=== PATIENT | male | born 1935 | race Caucasian/White ===

== ENCOUNTER 2018-10-13 16:26 | Inpatient (IN) ==
--- NOTE | 2018-10-13 16:42 | Emergency Department Note ---
Disposition Clinical Impression: Defibrillator discharge, Acute kidney injury, Ventricular tachycardia Disposition: Admitted As Inpatient Condition: Fair Time of Disposition: 19:05 General Adult HPI - General Chief complaint: ED Arrhythmia/Palpitations Stated complaint: Defibrillator firing Time Seen by Provider: 10/13/18 16:35 Source: patient, EMS Limitations: no limitations Nursing Notes Reviewed: Yes Vital Signs Reviewed: Yes - History of Present Illness HPI Narrative: 83-year-old male with history of atrial fibrillation, dementia who presents the emergency department with complaints of his defibrillator firing. He states this has fired multiple times over the last couple of days, most recently today. He states these have been "small shocks ". He denies any current chest pain, shortness of breath, nausea, vomiting or diarrhea. He denies any back pain. Pain Scale: 0 - Related Data Home Medications Medication Instructions Recorded Confirmed Atorvastatin Calcium [Lipitor] 20 mg PO DAILY 03/14/16 10/13/18 Clopidogrel [Plavix] 75 mg PO DAILY 03/14/16 10/13/18 Furosemide [Lasix] 20 mg PO DAILY 03/14/16 10/13/18 HYDROcodone/Acet 5/325 mg [Moose 1 tab PO TID PRN 03/14/16 10/13/18 5-325 mg] Warfarin [Coumadin] 2 mg PO DAILY 03/14/16 10/13/18 Warfarin [Coumadin] 1.5 mg PO DAILY 03/15/16 10/13/18 Acetaminophen [Tylenol] 325 mg PO Q4HR 05/19/18 10/13/18 Albuterol Sulfate [Ventolin Hfa] 18 gm IH Q4HR 05/19/18 10/13/18 Cetirizine HCl 5 mg PO DAILY 05/19/18 10/13/18 Donepezil [Aricept] 10 mg PO HS 05/19/18 10/13/18 Ipratropium/Albuterol Neb [Duoneb] 3 ml IH Q6HR PRN 05/19/18 10/13/18 Loperamide [Imodium] 2 mg PO Q4HR PRN 05/19/18 10/13/18 Magnesium Hydroxide [Milk of 30 ml PO DAILY PRN 05/19/18 10/13/18 Magnesia] Metoprolol XL (24 HR) Succ [Toprol 12.5 mg PO DAILY 05/19/18 10/13/18 Xl] Ondansetron ODT [Zofran ODT] 4 mg SL Q8HR PRN 05/19/18 10/13/18 Oxybutynin Chloride [Ditropan Xl] 5 mg PO DAILY 05/19/18 10/13/18 Pantoprazole Sodium [Protonix] 20 mg PO DAILY 05/19/18 10/13/18 Polyethylene Glycol 3350 [Clearlax] 17 gm PO DAILY 05/19/18 10/13/18 Sennosides [Senna] 8.6 mg PO BID 05/19/18 10/13/18 Sucralfate [Carafate] 1 gm PO QIDAC 05/19/18 10/13/18 Lisinopril [Zestril] 5 mg PO DAILY 10/13/18 10/13/18 Ranitidine HCl [Heartburn Relief] 75 mg PO BID 10/13/18 10/13/18 RisperiDONE [Risperdal] 0.25 mg PO QPM 10/13/18 10/13/18 Sertraline [Zoloft] 25 mg PO DAILY 10/13/18 10/13/18 Previous Rx's Medication Instructions Recorded Quetiapine Fumarate [Seroquel] 25 mg PO Q12H 14 Days tablet 03/20/16 Allergies Allergy/AdvReac Type Severity Reaction Status Date / Time No Known Allergies Allergy Verified 03/14/16 15:30 Review of Systems: ROS per history of present illness, all other systems reviewed and negative or normal. All systems ED: reviewed and negative except as stated. Review of Systems: As Per HPI Past Medical History - Past Medical History Medical history: Reports: arthritis, atrial fibrillation, dementia, GERD, hypert ension, myocardial infarction Surgical history: Reports: carotid endarterectomy, colectomy, herniorrhaphy Psychiatric history: Reports: no psych history - Social History Smoking Status: Current every day smoker Smokeless Tobacco Status: Yes Alcohol use: Reports: none Drug use: Reports: none Physical Exam General: Conversant. No apparent distress. Follow commands. Appears stated age. Neck: No JVD. Trachea midline. Neck supple. Eyes: PERRL. No scleral icterus. HENT: Normocephalic and atraumatic. Moist mucus membranes. Cardiovascular: Regular rate and rhythm. Normal S1 and S2. No murmurs appreciated. Normal capillary refill. Extremities well perfused with 2+ distal pulses bilaterally. No edema. Pulmonary: Normal and equal breath sounds bilaterally, anteriorly and posteriorly. No wheezes, rales, or rhonchi. Not in respiratory distress. Speaks in full sentences. Abdomen: Soft, nondistended, and tontender. No bruits or masses. No guarding. Neuro: Alert and oriented x2, knows place and person but not time. No slurred speech. No focal deficits noted. Skin: No rashes noted on visualized skin. Musculoskeletal: No bony abnormalities visualized. Moves all extremities. Psych: Normal mood. Pleasant. Makes appropriate eye contact. - General Limitations: no limitations General appearance: alert, in no apparent distress Course - Reevaluation(s) Reevaluation #1: [employer] report reviewed which shows 2 shocks delivered for V. tach/V. fib. Discussed case with Dr. Latif who recommends giving 25mg Metoprolol today then admission to the hospitalist and they will consult to see the patient tomorrow. Time: 18:53 Reevaluation #2: Updated family on plan of care. They agree to plan for admission. Time: 19:15 Reevaluation #3: [employer] states there were shocks provided due to AFib. Then there were shocks delivered for HR 222. He notes the fluid index is up. Time: 19:40 Vital Signs Temperature 98.4 F 10/13/18 16:28 Pulse Rate 76 10/13/18 16:28 Respiratory Rate 16 10/13/18 16:28 Blood Pressure 142/82 10/13/18 16:28 O2 Sat by Pulse Oximetry 97 10/13/18 16:28 Temperature 98.4 F 10/13/18 16:28 Pulse Rate 68 10/13/18 19:35 Respiratory Rate 16 10/13/18 19:35 Blood Pressure 134/61 10/13/18 19:35 O2 Sat by Pulse Oximetry 98 10/13/18 19:35 Oxygen Delivery Oxygen Delivery Room Air Medical Decision Making - [facility] Narrative Medical decision making narrative: 83-year-old male with history of CHF with AICD who presents the emergency department after defibrillator firing. The patient has no point at this time. He is alert and oriented 2 which appears approximately the patient's baseline. Patient has baseline anemia on laboratory evaluation. INR therapeutic at 2.3. Patient's creatinine 1.5 to which appears worse than previous but unsure if this is new acute kidney injury given his most recent creatinine was acting 2015. Otherwise the patient's magnesium is stable. Troponin 0.03. Potassium 3.9. Patient's chest x-ray shows no acute focal consolidation. We did interrogate the defibrillator and this showed runs of V. tach/V. fib as well as atrial tach/atrial flutter fib. He was seen in his insurance associate office today with interrogation but these episodes appear new. I discussed with clinical consultant security sales consultant, Dr. Latif who recommends hitting 25 mg metoprolol and admitting to hospitalist. They will consult to see the patient in the morning. Discussed case with on-call hospitalist Dr. Dejesus who agrees with plan for admission and accepts the patient to the inpatient service. Patient agrees with and understands course of treatment plan including plan for admission. All questions answered. - Medical Records Medical records reviewed: Yes I reviewed the patient's medical records. - Lab Data Lab results reviewed: Yes I reviewed the patient's lab results. Result diagrams: 10/13/18 16:49 10/13/18 16:49 Lab Results 10/13/18 10/13/18 10/13/18 Range/Units 16:49 16:49 16:49 WBC 6.9 (4.3-11.1) K/mcL RBC 3.34 L (4.19-5.50) M/mcL Hgb 9.5 L (12.9-16.9) g/dL Hct 29.5 L (37.5-50.1) % MCV 88.3 (83.0-100.0) fL MCH 28.4 (28.0-33.3) pg MCHC 32.2 (31.6-35.5) g/dL RDW 15.1 H (11.5-14.5) % Plt Count 153 (140-400) K/mcL MPV 9.8 (9.4-12.4) fL Immature Gran % 0.3 (0-4) % Seg Neutrophils % 58.5 % Lymphocytes % 29.6 % Monocytes % 11.2 % Eosinophils % 0.0 % Basophils % 0.4 % Neutrophils # 4.0 (1.6-8.9) K/mcL Lymphocytes # 2.0 (0.6-4.6) K/mcL Monocytes # 0.8 (0.0-1.3) K/mcL Eosinophils # 0.0 (0.0-0.6) K/mcL Basophils # 0.0 (0.0-0.2) K/mcL PT 26.5 H (9.4-12.1) Seconds INR 2.3 Sodium 140 (136-145) mEq/L Potassium 3.9 (3.5-5.1) mEq/L Chloride 104 (98-107) mEq/L Carbon Dioxide 28 (23-29) mEq/L BUN 22 (8-23) mg/dL Creatinine 1.52 H (0.70-1.30) mg/dL Est GFR ( Amer) 53 L (> 60) Est GFR (Non-Af Amer) 44 L (> 60) BUN/Creatinine Ratio 14 (6-26) Glucose 92 (70-105) mg/dL Calculated Osmolality 293 (280-300) Calcium 9.1 (8.6-10.3) mg/dL Magnesium 2.0 (1.6-2.6) mg/dL Troponin I 0.03 (< 0.04) ng/mL - Radiology Data Radiology results reviewed: Yes I reviewed the patient's radiology results. Chest X-Ray 10/13/18 16:36 IMPRESSION: No acute process. D/ / Tremayne Orozco MD / Tremayne Orozco MD Interpreting Provider: Tremayne Orozco MD - EKG Data EKG #1 EKG attestation: Yes I reviewed and interpreted this EKG. EKG results narrative: Atrial paced rhythm rate of 74. There are no acute ST or T-wave abnormalities. When compared with prior from 05/19/18 there are no significant changes. Attestation Statement - Attestation Attestation: Dr. Henry note: Patient seen in conjunction with resident Dr. Jonel Washington; please see her charting for complete documentation. Spent [id number] time with the patient and agree with the patient's treatment and disposition. No chest pain or shortness of breath at the time of admission. Defibrillator has fired 3 times in the last 24 hours and upon device interrogation different lengths of ventricular fibrillation and ventricular tachycardia were detected. Labs reviewed and stable. Admitted and stabilized improved condition.
[2018-10-13 16:57] LABS: Basophils % 0.4 %; Hematocrit 29.5 % (37.5-50.1); Hemoglobin 9.5 g/dL (12.9-16.9); Immature Granulocytes % 0.3 % (0-4); Lymphocytes % 29.6 %; Mean Corpuscular HGB Conc 32.2 g/dL (31.6-35.5); Mean Corpuscular Hemoglobin 28.4 pg (28.0-33.3); Mean Corpuscular Volume 88.3 fL (83.0-100.0); Mean Platelet Volume 9.8 fL (9.4-12.4); Monocytes # 0.8 K/mcL (0.0-1.3); Monocytes % 11.2 %; Platelet Count 153 K/mcL (140-400); Red Blood Count 3.34 M/mcL (4.19-5.50); Red Cell Distribution Width 15.1 % (11.5-14.5); Segmented Neutrophils % 58.5 %; White Blood Count 6.9 K/mcL (4.3-11.1)
[2018-10-13 17:04] LABS: INR 2.3; Prothrombin Time 26.5 Seconds (9.4-12.1)
[2018-10-13 17:17] LABS: Calcium 9.1 mg/dL (8.6-10.3); Potassium 3.9 mEq/L (3.5-5.1); Troponin I 0.03 ng/mL (< 0.04)
[2018-10-13] MEDS ORDERED: Nicotine 21 MG PATCH.TD24 TD STA (19:43)
[2018-10-13] MEDS ORDERED: Metoprolol XL (24 HR) Succ 25 MG TAB.ER.24H PO STA (20:17)
[2018-10-14] MEDS ORDERED: Naloxone 0.4 MG/ML INJ IVP PRN (04:48)
--- NOTE | 2018-10-14 04:53 | Internal Med History&Physical ---
Date of Encounter: 10/14/18 Time of Encounter: 04:30 Internal Medicine - H&P: HPI Chief complaint: Defibrillator firing Admitted From: Emergency Dept History of present illness: Mr. Vizcarra is a 83 year old male Patient presented to the emergency room from a [facility] after experiencing several shocks from his defibrillator. He has a pacemaker secondary to atrial fibrillation, and at the end of April of this year had it replaced by Dr. Ye watson. He had no issues prior to this. He was brought to the emergency room for further evaluation. Emergency room patient's initial vital signs were within normal limits CBC: White count 6.9, hemoglobin 9.5, platelets 153 BMP: Notable for creatinine of 1.5 to. Initial troponin 0.03 Chest x-ray no acute process EKG: Paced rhythm, rate of 74, no ischemic changes In the emergency room [employer] was called and they noted that the pacemaker did fire twice for a V. tach/V. fib episode. Emergency department contacted director of operations home health cardiology Dr. Latif who recommended giving the patient 25 mg of metoprolol and admitting the patient to the hospital. The pacemaker was interrogated again in the ER, and [employer] indicated that the pacemaker had fired for atrial fibrillation after the heart rate reached 222bpm. Upon my evaluation, patient is resting comfortably in the hospital bed in no acute distress. He is oriented to self, place but not time. He denies chest pain, abdominal pain, nausea, vomiting, diarrhea and constipation. He is a pack-a-day smoker, and is a full code. Past Med Surg Social Fam HX - Past Medical History Medical history: arthritis, atrial fibrillation, dementia, GERD, hypertension, myocardial infarction Additional medical history: cerebral infarction. gastritis Psychiatric history: no psych history - Past Surgical History Surgical History: carotid endarterectomy, colectomy, herniorrhaphy, pacemaker/AICD - Social History Smoking Status: Current every day smoker Packs per day: 1 Smokeless Tobacco Status: Yes Alcohol use: none Drug use: none - Family History Mother Adopted: No Family Member Ethnicity: Non- Living Status: Hx Family Cardiac Disorders: Yes Internal Medicine - H&P: Meds Atorvastatin Calcium [Lipitor] 20 mg PO DAILY 03/14/16 [History] Clopidogrel [Plavix] 75 mg PO DAILY 03/14/16 [History] Furosemide [Lasix] 20 mg PO DAILY 03/14/16 [History] HYDROcodone/Acet 5/325 mg [[place] Burn 5-325 mg] 1 tab PO TID PRN 03/14/16 [History] Warfarin [Coumadin] 2 mg PO DAILY 03/14/16 [History] Warfarin [Coumadin] 1.5 mg PO DAILY 03/15/16 [History] Quetiapine Fumarate [Seroquel] 25 mg PO Q12H 14 Days tablet 03/20/16 [Rx] Acetaminophen [Tylenol] 325 mg PO Q4HR 05/19/18 [History] Albuterol Sulfate [Ventolin Hfa] 18 gm IH Q4HR 05/19/18 [History] Cetirizine HCl 5 mg PO DAILY 05/19/18 [History] Donepezil [Aricept] 10 mg PO HS 05/19/18 [History] Ipratropium/Albuterol Neb [Duoneb] 3 ml IH Q6HR PRN 05/19/18 [History] Loperamide [Imodium] 2 mg PO Q4HR PRN 05/19/18 [History] Magnesium Hydroxide [Milk of Magnesia] 30 ml PO DAILY PRN 05/19/18 [History] Metoprolol XL (24 HR) Succ [Toprol Xl] 12.5 mg PO DAILY 05/19/18 [History] Ondansetron ODT [Zofran ODT] 4 mg SL Q8HR PRN 05/19/18 [History] Oxybutynin Chloride [Ditropan Xl] 5 mg PO DAILY 05/19/18 [History] Pantoprazole Sodium [Protonix] 20 mg PO DAILY 05/19/18 [History] Polyethylene Glycol 3350 [Clearlax] 17 gm PO DAILY 05/19/18 [History] Sennosides [Senna] 8.6 mg PO BID 05/19/18 [History] Sucralfate [Carafate] 1 gm PO QIDAC 05/19/18 [History] Lisinopril [Zestril] 5 mg PO DAILY 10/13/18 [History] Ranitidine HCl [Heartburn Relief] 75 mg PO BID 10/13/18 [History] RisperiDONE [Risperdal] 0.25 mg PO QPM 10/13/18 [History] Sertraline [Zoloft] 25 mg PO DAILY 10/13/18 [History] Allergy/AdvReac Type Severity Reaction Status Date / Time No Known Allergies Allergy Verified 03/14/16 15:30 All Systems PM: A 10-system review of systems was performed and is negative for pertinent findings except as documented above in the HPI. - Constitutional Vitals: Temp Pulse Resp BP Pulse Ox 98.0 F 60 16 134/76 97 10/13/18 23:40 10/13/18 23:40 10/13/18 23:40 10/13/18 23:40 10/13/18 23:40 General appearance: Present: cooperative, A&O X 2, pleasant, no acute distress, answers questions appropriately Exam: - - Head Head exam: Present: normal inspection - Eye Eye exam: Present: EOMI, normal appearance - Respiratory Respiratory exam: Present: CTAB. Absent: rales, respiratory distress, rhonchi, wheezes - Cardiovascular Cardiovascular exam: Present: RRR. Absent: diastolic murmur, systolic murmur - GI/Abdominal GI/Abdominal exam: Present: normal bowel sounds, soft, tenderness - Extremities Exam Extremities exam: Present: warm, radial pulses palpable and symmetrical. Absent: calf tenderness, pedal edema, tenderness - Neurological Exam Neurological exam: Present: no focal deficits, strengths equal and symetr throughout. Absent: motor sensory deficit, facial droop, speech deficit - Skin Skin exam: Present: dry, normal color, warm Internal Med - H&P Results - Labs CBC & Chem 7: 10/13/18 16:49 10/13/18 16:49 Labs: Short CBC 10/13/18 Range/Units 16:49 WBC 6.9 (4.3-11.1) K/mcL Hgb 9.5 L (12.9-16.9) g/dL Hct 29.5 L (37.5-50.1) % Plt Count 153 (140-400) K/mcL Neutrophils # 4.0 (1.6-8.9) K/mcL BMP 10/13/18 16:49 Sodium 140 Potassium 3.9 Chloride 104 Carbon Dioxide 28 BUN 22 Creatinine 1.52 H Glucose 92 Calcium 9.1 Cardiac Enzymes 10/13/18 Range/Units 16:49 Troponin I 0.03 (< 0.04) ng/mL - Impressions ITS Impressions Chest X-Ray 10/13/18 16:36 IMPRESSION: No acute process. D/ / Tremayne Orozco MD / Tremayne Orozco MD Interpreting Provider: Tremayne Orozco MD - Assessment and Plan (1) Defibrillator discharge Current Visit: Yes Status: Acute Assessment and plan: Patient has had a few firings of his defibrillator after reviewing its activity. Cardiology was contacted from the ER and will see the patient in the morning. Patient was given 25 mg of metoprolol. Follow-up cardiology recommendations Cardiac monitoring (2) CELE (acute kidney injury) Current Visit: Yes Status: Acute Assessment and plan: Patient's creatinine was 1.52 in the emergency room. Last known recorded creatinine from 3 years ago was 1.22. No fluids given in the emergency room secondary to history of systolic CHF. Echocardiogram from 6 months ago shows an EF of 25-30%. Repeat labs in the morning Continue to monitor Avoid nephrotoxic medications Renally dose meds (3) Tobacco abuse Current Visit: No Status: Chronic Assessment and plan: Nicotine patch (4) DVT prophylaxis Current Visit: Yes Status: Acute Assessment and plan: Continue home warfarin, pharmacy to dose - Time Spent With Patient Total time spent is greater than 50% in coordination of care (as documented) at patient's floor/unit and/or counseling patient: Greater than 35 minutes
[2018-10-14 06:01] LABS: Hematocrit 29.2 % (37.5-50.1); Hemoglobin 9.6 g/dL (12.9-16.9); Mean Corpuscular HGB Conc 32.9 g/dL (31.6-35.5); Mean Corpuscular Volume 88.2 fL (83.0-100.0); Mean Platelet Volume 10.3 fL (9.4-12.4); Platelet Count 153 K/mcL (140-400); Red Blood Count 3.31 M/mcL (4.19-5.50); Red Cell Distribution Width 14.9 % (11.5-14.5)
[2018-10-14 06:24] LABS: INR 2.1; Prothrombin Time 23.8 Seconds (9.4-12.1)
[2018-10-14 06:26] LABS: Calcium 9.4 mg/dL (8.6-10.3); Potassium 4.4 mEq/L (3.5-5.1)
--- NOTE | 2018-10-14 07:52 | Event Note ---
Date of Encounter: 10/14/18 Time of Encounter: 09:50 Mr Vizcarra is a 83 yo male with pmhx Afib s/p PPM and AICD, HFrEF 25-30% following with Dr Zhang outpt, Dementia, HTN, CVA who presented with defibrillator firing at [facility]. He was initially placed as observation, however with another firing today and EKG findings of age indeterminant anterior infarct, he requires continued inpt monitoring for medication adjustments, continued tele with cardiology consultation. He has been placed as inpatient for this continued care. awake, family at bedside. with his dementia he is acutely aware of when aicd fires but now today cannot recall. denies cp, pressure, sob, plapitations. no dizziness, n/v/sweats. Family is t bedside. Cardiology [employer] to bedside as well. gen- alert, awake,appears stated age eyes- pupils equal round cv- reg rate and rhythm, normal s1,s2, no murmurs appreciated, no le edema, no jvd lungs- ctabl, no wheezing, rhonchi or crackles abd- soft, non tender, non distended, neuro- AAOxperson, place, not date, CN grossly intact Defibrillator firing 2/2 Afib with RVR -d/w cards and interrogation shows Afib -uptitrate BB and monitor -monitor lytes, cont tele, check tsh in am, no evidence of infection as precipitating factor of afib rvr -ekg with normal qtc and age indeterminant anterior infarct likely, defer ischemic work up recs to cards this admit- cont asa + plavix Afib on Warfarin- paroxysmal, currently NSR -INR at goal, pharm to dose AC, 50 mg Toprol XL started today CELE, improving - holding iVF due to HFrEF hx, avoid nephrotoxins, cont to hold acei and lasix -check ua Dementia- cont home meds regimen: donepizil, seroquel, risperdal, zoloft, will monitor QTc, next check ekg in am HFrEF- stable, not in exacerbation- meds as above vte ppx- warfarin dispo- is a bedhold at SNF when medically stable for dc
--- NOTE | 2018-10-14 09:50 | Cardiology Consult Note ---
<Radha Moore Nessa - Last Filed: 10/14/18 11:05> Date of Encounter: 10/14/18 Time of Encounter: 09:30 Assessment and Plan (1) Defibrillator discharge Status: Acute AICD shock on 09/29, 10/12, and 10/13. Per device report (and remote device checks reviewed by Dr. Zhang); AICD shocks for Afib with RVR. Electrolytes normal, K 4.0 and Mg 2.0. BP stable, will optimize BB dose--increase to Toprol XL 50 mg daily. (2) Atrial fibrillation Status: Chronic Long-standing hx of atrial fibrillation on coumadin. INR monitored by SNF. NSR upon exam, HR 60's. . Appears ICD shocks for Afib with RVR; will increase home toprol XL to 50 mg daily; hypertension noted on exam. Continue to increase BB as BP will tolerate. Qualifiers: Atrial fibrillation type: paroxysmal Qualified Code(s): I48.0 - Paroxysmal atrial fibrillation (3) Ischemic cardiomyopathy Status: Acute Longstanding hx of ICMP s/p dual chamber ICD. Recent gen change 04/2018. Family reports initial AICD >20 years ago. Clinically euvolemic upon exam. Continue current medical therapy; will optimize BB dose. Resume ACEi if BP tolerates increase in BB. Continue statin, plavix, and coumadin. No asa to avoid triple therapy. Discussion w patient/family: The assessment and plan as outlined above was discussed with the patient and/or family members who expressed understanding and agreement. All questions were answered. Thank you for involving us in the care of your patient. Please call with any questions. The patient will be discussed and reviewed with Dr. Weinberg; changes to be made accordingly. History of Present Illness Consult date: 10/14/18 Requesting physician: Cindy Washington Consult reason: AICD shock Chief complaint: AICD shock History of present illness: Mr. Vizcarra is a 83 year old male with PMHx significant of HTN, CAD, AFib (coumadin), ICMP s/p AICD, and dementia who presented to the ED from SNF due to recurrent ICD shocks. Initial shock on 09/29, then 10/12, and again yesterday which prompted ED evaluation. Patient is pleasantly confused upon exam and has no complaints--no chest pain/discomfort, edema, or dizziness. He does not recall AICD shocks. Remote device checks reviewed, appears to have ICD shocks for afib with RVR. Upon arrival to ED, he is noted to be in NSR, 60 BPM. Troponin negative x2. No acute electrolyte abnormality. Past Med Surg Social Fam HX - Past Medical History Attestation: Yes The following information was validated with the patient. Source: old records reviewed, obtained from family Medical history: arthritis, atrial fibrillation, cardiomyopathy, coronary artery disease, dementia, GERD, hypertension, myocardial infarction Additional medical history: cerebral infarction. gastritis Psychiatric history: no psych history - Past Surgical History Surgical History: carotid endarterectomy, colectomy, herniorrhaphy, pacemaker/AICD - Social History Smoking Status: Current every day smoker Packs per day: 1 Smokeless Tobacco Status: Yes Alcohol use: none Drug use: none - Family History Mother Adopted: No Family Member Ethnicity: Non- Living Status: Hx Family Cardiac Disorders: Yes Father History Unknown: Yes Medications and Allergies Atorvastatin Calcium [Lipitor] 20 mg PO DAILY 03/14/16 [History] Clopidogrel [Plavix] 75 mg PO DAILY 03/14/16 [History] Furosemide [Lasix] 20 mg PO Q48H 03/14/16 [History] HYDROcodone/Acet 5/325 mg [[place] 5-325 mg] 1 tab PO TID 03/14/16 [History] Warfarin [Coumadin] 2 mg PO [id number] 03/14/16 [History] Quetiapine Fumarate [Seroquel] 25 mg PO Q12H 14 Days tablet 03/20/16 [Rx] Albuterol Sulfate [Ventolin Hfa] 1 - 2 puff IH Q4HR PRN 05/19/18 [History] Cetirizine HCl 5 mg PO DAILY 05/19/18 [History] Donepezil [Aricept] 10 mg PO HS 05/19/18 [History] Loperamide [Imodium] 4 mg PO AD PRN 05/19/18 [History] Oxybutynin Chloride [Ditropan Xl] 5 mg PO DAILY 05/19/18 [History] Pantoprazole Sodium [Protonix] 20 mg PO BID 05/19/18 [History] Sennosides [Senna] 8.6 mg PO BID 05/19/18 [History] Sucralfate [Carafate] 1 gm PO ACHS 05/19/18 [History] Lisinopril [Zestril] 5 mg PO DAILY 10/13/18 [History] Ranitidine HCl [Heartburn Relief] 75 mg PO BID 10/13/18 [History] RisperiDONE [Risperdal] 0.25 mg PO HS 10/13/18 [History] Sertraline [Zoloft] 25 mg PO DAILY 10/13/18 [History] Acetaminophen [Tylenol] 650 mg PO Q4H PRN 10/14/18 [History] Chlorpheniramine/Dextromethorp [Coricidin Hbp Cough & Cold Tab] 2 tab PO Q4H PRN MDD 4 TABS/24HR 10/14/18 [History] Ipratropium/Albuterol Sulfate [Iprat-Albut 0.5-3(2.5) mg/3 ml] 3 ml IH Q4H PRN 10/14/18 [History] Magnesium Hydroxide [Milk of Magnesia] 2,400 mg PO DAILY PRN 10/14/18 [History] Ondansetron HCl 4 mg PO Q8H PRN 10/14/18 [History] Polyethylene Glycol 3350 [MiraLax bowel prep] 17 gm PO DAILY 10/14/18 [History] Warfarin [Coumadin] 1.5 mg PO MOTH 10/14/18 [History] Amiodarone [Cordarone] 200 mg PO DAILY tablet 10/15/18 [Rx] Metoprolol XL (24 HR) Succ [Toprol Xl] 50 mg PO DAILY tab.er.24h 10/15/18 [Rx] Allergy/AdvReac Type Severity Reaction Status Date / Time No Known Allergies Allergy Verified 10/14/18 10:17 ROS unobtainable: due to mental status (dementia) All Systems Review: The remainder of the systems were reviewed and are negative Physical Examination Vital Signs, Last 4 Hours Temp Pulse Resp BP Pulse Ox 10/14/18 07:06 98.2 F 68 16 140/69 96 10/14/18 05:54 98.4 F 69 14 140/67 98 General: Conversant, No Apparent Distress HEENT: Atraumatic, Normocephaly Cardiac: Reg Rate and Rhythm, Normal S1 and S2 Lungs: Normal Breath Sounds Neuro: Alert and responsive (to self) Abdomen: Soft Skin: No rashes noted on visualized skin Musculoskeletal: No Chest Wall Tenderness Extremities: No Edema, Normal Pulses Results 10/14/18 05:39 10/14/18 05:39 Lab Results 10/13/18 10/13/18 10/13/18 16:49 16:49 16:49 WBC 6.9 Hgb 9.5 L Hct 29.5 L Plt Count 153 INR 2.3 Sodium 140 Potassium 3.9 Chloride 104 Carbon Dioxide 28 BUN 22 Creatinine 1.52 H Glucose 92 Calcium 9.1 Magnesium 2.0 Troponin I 0.03 10/14/18 10/14/18 10/14/18 05:39 05:39 05:39 WBC 7.0 Hgb 9.6 L Hct 29.2 L Plt Count 153 INR 2.1 Sodium 141 Potassium 4.4 Chloride 105 Carbon Dioxide 24 BUN 22 Creatinine 1.37 H Glucose 99 Calcium 9.4 Magnesium Troponin I 10/14/18 05:39 WBC Hgb Hct Plt Count INR Sodium Potassium Chloride Carbon Dioxide BUN Creatinine Glucose Calcium Magnesium Troponin I 0.03 Active Medications Hydrocodone Bitart/Acetaminophen ([place] 5-325 Mg) 1 tab PO TID PRN PRN Reason: Pain Stop: 04/14/19 23:18 Atorvastatin Calcium (Lipitor) 20 mg PO HS [facility] Stop: 04/15/19 21:01 Clopidogrel Bisulfate (Plavix) 75 mg PO DAILY [facility] Stop: 04/15/19 09:01 Donepezil HCl (Aricept) 10 mg PO HS [facility] Stop: 04/15/19 21:01 Famotidine (Pepcid) 10 mg PO BID [facility] Stop: 04/15/19 09:01 Metoprolol Succinate (Toprol Xl) 50 mg PO DAILY [facility] Stop: 04/15/19 09:16 Naloxone HCl (Narcan) 0.4 mg IVP Q2MPRN PRN PRN Reason: SEE COMMENTS Stop: 04/15/19 04:49 Omeprazole (Prilosec) 20 mg PO DAILY@0730 [facility] Stop: 04/15/19 09:01 Oxybutynin Chloride (Ditropan) 5 mg PO BID [facility] Stop: 04/15/19 09:01 Polyethylene Glycol (Miralax) 17 gm PO DAILY [facility] Stop: 04/15/19 09:01 Quetiapine Fumarate (Seroquel) 25 mg PO Q12H [facility]; Protocol Stop: 04/15/19 21:01 Risperidone (Risperdal) 0.25 mg PO QPM [facility]STIANE Stop: 04/15/19 18:01 Sertraline HCl (Zoloft) 25 mg PO DAILY CRISTIANE Stop: 04/15/19 09:01 Sucralfate (Carafate) 1 gm PO QIDAC [facility]STIANE Stop: 04/15/19 11:31 Warfarin Sodium (Coumadin Perpt) 1 each PO DAILY@1800 PRN PRN Reason: SEE COMMENTS Stop: 04/15/19 18:01 Warfarin Sodium (Coumadin) 2 mg PO 1800 ONE Stop: 10/14/18 18:01 - Imaging and Cardiology Echo: report reviewed - EKG Interpretation EKG results cardiology: personally reviewed Consult Discharge Plan - Plan Referrals: Fredi Valverde MD [Primary Care Provider] - Jose Zhang MD [Partnered Physician] - <Yunior Weinberg A - Last Filed: 10/15/18 15:51> Date of Encounter: 10/15/18 Time of Encounter: 09:30 - Attending Attestation I have personally performed a face to face evaluation on this patient. I have reviewed and agree with the documented findings and care plan as documented by the TYPEWRITER ALIGNER. History and Exam by me shows: Patients with A. fib with RVR received ICD shocks inappropriately. Increase Toprol to 50 mg daily. Add amiodarone if LFTs are normal. Continue Coumadin to therapeutic INR Yunior Hoffman MD [facility] Assessment and Plan Discussion w patient/family: The assessment and plan as outlined above was discussed with the patient and/or family members who expressed understanding and agreement. All questions were answered. Thank you for involving us in the care of your patient. Please call w ith any questions. History of Present Illness History of present illness: Mr. Vizcarra is a 83 year old male All Systems Review: The remainder of the systems were reviewed and are negative Results 10/14/18 05:39 10/15/18 02:51 Lab Results 10/15/18 10/15/18 02:51 02:51 INR 1.8 Sodium 139 Potassium 3.9 Chloride 106 Carbon Dioxide 25 BUN 21 Creatinine 1.27 Glucose 121 H Calcium 9.2 Magnesium 2.0 TSH 2.682
[2018-10-14] MEDS: *HR* HYDROcodone/Acet 5/325 mg TABLET PO PRN ×2 (11:53→18:37)
[2018-10-14] MEDS: Sucralfate 1 GM TABLET PO SCH ×3 (11:53→21:25)
[2018-10-14] MEDS: Famotidine 20 MG TABLET PO SCH ×2 (11:54→21:25)
[2018-10-14] MEDS: Metoprolol XL (24 HR) Succ 50 MG TAB.ER.24H PO SCH (11:55)
--- NOTE | 2018-10-14 12:47 | Electrocardiograph Report ---
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
[2018-10-14 13:19] LABS: Alanine Aminotransferase 7 Units/L (7-52); Aspartate Amino Transferase 17 Units/L (13-39)
[2018-10-14] MEDS ORDERED: risperiDONE 0.25 MG TABLET PO SCH (18:00)
[2018-10-14] MEDS ORDERED: Warfarin perPT PO PRN (18:00)
[2018-10-14] MEDS ORDERED: *HR* Warfarin 2 MG TABLET PO ONE (18:00)
[2018-10-14 22:39] LABS: Bilirubin,Urine Negative (Negative); Blood,Urine Negative (Negative); Clarity,Urine Clear (Clear); Color,Urine Yellow (Yellow); Glucose,Urine (UA) Normal (Normal); Ketones,Urine Negative (Negative); Leukocyte Esterase,Urine Negative (Negative); Nitrite,Urine Negative (Negative); Protein,Urine Negative (Neg-Trace); Urobilinogen,Urine Normal (Normal)
[2018-10-15] MEDS: Nicotine 21 MG PATCH.TD24 TD SCH ×2 (01:04→08:01)
[2018-10-15 03:25] LABS: INR 1.8; Prothrombin Time 20.3 Seconds (9.4-12.1)
[2018-10-15 03:32] LABS: BUN/Creatinine Ratio 17 (6-26); Blood Urea Nitrogen 21 mg/dL (8-23); Calcium 9.2 mg/dL (8.6-10.3); Carbon Dioxide 25 mEq/L (23-29); Chloride 106 mEq/L (98-107); Glucose 121 mg/dL (70-105); Osmolality,Calculated 292 (280-300); Potassium 3.9 mEq/L (3.5-5.1); Sodium 139 mEq/L (136-145); eGFR For African Americans > 60 (> 60); eGFR For Non-African Americans 54 (> 60)
[2018-10-15 03:44] LABS: Thyroid Stimulating Hormone 2.682 mcIU/mL (0.340-5.600)
[2018-10-15] MEDS: *HR* HYDROcodone/Acet 5/325 mg TABLET PO PRN ×2 (06:12→11:21)
[2018-10-15 07:18] VITALS: BP 149/87
[2018-10-15] MEDS ORDERED: *HR* Enoxaparin 60 MG/0.6 ML SYRINGE SQ SCH (07:30)
[2018-10-15] MEDS ORDERED: Potassium Chloride Elixir 20 MEQ/15 ML UDC PO ONE (07:31)
--- NOTE | 2018-10-15 08:00 | Internal Med Progress Note ---
Hospitalist Progress Note - Encounter Date of Encounter: 10/15/18 - Exam Vitals: Temp Pulse Resp BP Pulse Ox 98.2 F 71 14 149/87 99 10/15/18 07:14 10/15/18 07:14 10/15/18 07:14 10/15/18 07:14 10/15/18 07:14 - Assessment and Plan (1) Tobacco abuse Current Visit: No Status: Chronic (2) CELE (acute kidney injury) Current Visit: Yes Status: Acute (3) Defibrillator discharge Current Visit: Yes Status: Acute (4) DVT prophylaxis Current Visit: Yes Status: Acute - Time Spent with Patient Total time spent is greater than 50% in coordination of care (as documented) at patient's floor/unit and/or counseling patient: Internal Medicine: Result - Labs CBC & Chem 7: 10/14/18 05:39 10/15/18 02:51 Labs: BMP 10/15/18 02:51 Sodium 139 Potassium 3.9 Chloride 106 Carbon Dioxide 25 BUN 21 Creatinine 1.27 Glucose 121 H Calcium 9.2 Liver Function 10/14/18 Range/Units 12:51 AST 17 (13-39) Units/L ALT 7 (7-52) Units/L Urine 10/14/18 Range/Units 22:25 Urine Color Yellow (Yellow) Urine Clarity Clear (Clear) Urine pH 6.0 (5.0-8.0) pH Units Ur Specific [place] 1.030 H (1.010-1.025) Urine Protein Negative (Neg-Trace) mg/dL Urine Glucose (UA) Normal (Normal) mg/dL - ABG Interpretation ABG results: PT/INR, D-dimer PT 20.3 Seconds (9.4-12.1) H 10/15/18 02:51 Consult Discharge Plan - Plan Referrals: Fredi Valverde MD [Primary Care Provider] -
[2018-10-15] MEDS: Famotidine 20 MG TABLET PO SCH (08:01)
[2018-10-15] MEDS: Sucralfate 1 GM TABLET PO SCH ×2 (08:01→11:21)
[2018-10-15] MEDS: Metoprolol XL (24 HR) Succ 50 MG TAB.ER.24H PO SCH (08:01)
[2018-10-15] MEDS ORDERED: Furosemide 20 MG TABLET PO SCH (09:00)
[2018-10-15] MEDS ORDERED: *HR* Amiodarone 200 MG TABLET PO SCH (11:00)
--- NOTE | 2018-10-15 11:04 | Cardiology Progress Note ---
Date of Encounter: 10/15/18 Time of Encounter: 10:30 Assessment and Plan (1) Defibrillator discharge Current Visit: Yes Status: Acute Per Cardiology: AICD shock on 09/29, 10/12, and 10/13. Per device report (and remote device checks reviewed by Dr. Zhang); AICD shocks for Afib with RVR. Electrolytes and TSH ok. Trops negative 2. Denies any recurrent discharges. (2) Atrial fibrillation Current Visit: Yes Status: Chronic Per Cardiology: Long-standing hx of apparent persistent atrial fibrillation. SR on tele. Now on Toprol-XL 50 mg by mouth daily. Discussed and reviewed with Dr. Weinberg, adding amiodarone 200 mg by mouth daily. LFTs stable. Cardiology signing off, follow-up arranged, re-consult as needed. All questions answered. On long-term anticoagulation of Coumadin with current INR 1.8. INR monitored by SNF. Will discontinue Lovenox since on Coumadin and presented with CELE. Qualifiers: Atrial fibrillation type: paroxysmal Qualified Code(s): I48.0 - Paroxysmal atrial fibrillation (3) Chronic anticoagulation Current Visit: No Status: Chronic Per Cardiology: On Coumadin. (4) Ischemic cardiomyopathy Current Visit: Yes Status: Chronic Per Cardiology: Longstanding hx of ICMP s/p dual chamber ICD. Recent gen change 04/2018. Family reports initial AICD >20 years ago. Clinically euvolemic upon exam. On BB. Consider resuming ACEi. On statin, plavix, and coumadin. No asa to avoid triple therapy. Discussion w patient/family: The assessment and plan as outlined above was discussed with the patient and/or family members who expressed understanding and agreement. All questions were answered. Thank you for involving us in the care of your patient. Please call with any questions. Subjective Principal diagnosis: Afib RVR, ICD shock Interval history: Denies any concerns or complaints overnight. Denies any ICD shocks, palpitations, chest pain, short of breath. Objective Vital Signs, Last 4 Hours Temp Pulse Resp BP Pulse Ox 10/15/18 07:14 98.2 F 71 14 149/87 99 General: Conversant, No Apparent Distress HEENT: Atraumatic, Normocephaly, Mucus Membranes Moist Neck: No JVD, Normal carotid pulses Cardiac: Reg Rate and Rhythm, Normal S1 and S2, No Murmur Lungs: Normal Breath Sounds, No Wheeze, Rales, Rhonchi Neuro: Alert and responsive, No focal deficits noted Abdomen: Soft, Non-Tender Skin: No rashes noted on visualized skin Musculoskeletal: No Chest Wall Tenderness Extremities: No Clubbing, No Cyanosis, No Edema, Normal Pulses Results 10/14/18 05:39 10/15/18 02:51 Lab Results Laboratory Tests 10/13/18 10/14/18 10/14/18 16:49 05:39 05:39 Hgb 9.6 L Hct 29.2 L INR Potassium Creatinine Est GFR (Non-Af Amer) Calcium AST ALT Troponin I 0.03 0.03 TSH 10/14/18 10/15/18 10/15/18 12:51 02:51 02:51 Hgb Hct INR 1.8 Potassium 3.9 Creatinine 1.27 Est GFR (Non-Af Amer) 54 L Calcium 9.2 AST 17 ALT 7 Troponin I TSH 2.682 ITS Impressions Chest X-Ray 10/13/18 16:36 IMPRESSION: No acute process. D/ / Tremayne Orozco MD / Tremayne Orozco MD Interpreting Provider: Tremayne Orozco MD Active Medications Hydrocodone Bitart/Acetaminophen ([place] 5-325 Mg) 1 tab PO TID PRN PRN Reason: Pain Stop: 04/14/19 23:18 Last Admin: 10/15/18 06:12 Dose: 1 tab Documented by: Amiodarone HCl (Cordarone) 200 mg PO DAILY CRISTIANE Stop: 04/16/19 11:01 Atorvastatin Calcium (Lipitor) 20 mg PO HS CRISTIANE Stop: 04/15/19 21:01 Last Admin: 10/14/18 21:25 Dose: 20 mg Documented by: Clopidogrel Bisulfate (Plavix) 75 mg PO DAILY CRISTIANE Stop: 04/15/19 09:01 Last Admin: 10/15/18 08:01 Dose: 75 mg Documented by: Donepezil HCl (Aricept) 10 mg PO HS CRISTIANE Stop: 04/15/19 21:01 Last Admin: 10/14/18 21:25 Dose: 10 mg Documented by: Enoxaparin Sodium (Lovenox) 60 mg SQ Q12HCO [facility]; Protocol Stop: 04/16/19 07:31 Last Admin: 10/15/18 08:14 Dose: 60 mg Documented by: Famotidine (Pepcid) 10 mg PO BID [facility] Stop: 04/15/19 09:01 Last Admin: 10/15/18 08:01 Dose: 10 mg Documented by: Furosemide (Lasix) 20 mg PO Q48H CRISTIANE Stop: 04/16/19 09:01 Last Admin: 10/15/18 08:14 Dose: 20 mg Documented by: Metoprolol Succinate (Toprol Xl) 50 mg PO DAILY [facility]STIANE Stop: 04/15/19 09:16 Last Admin: 10/15/18 08:01 Dose: 50 mg Documented by: Naloxone HCl (Narcan) 0.4 mg IVP Q2MPRN PRN PRN Reason: SEE COMMENTS Stop: 04/15/19 04:49 Nicotine (Nicoderm) 21 mg TD DAILY [facility]; Protocol Stop: 04/15/19 23:46 Last Admin: 10/15/18 08:01 Dose: 21 mg Documented by: Omeprazole (Prilosec) 20 mg PO DAILY@0730 [facility] Stop: 04/15/19 09:01 Last Admin: 10/15/18 08:01 Dose: 20 mg Documented by: Oxybutynin Chloride (Ditropan) 5 mg PO BID [facility] Stop: 04/15/19 09:01 Last Admin: 10/15/18 08:01 Dose: 5 mg Documented by: Polyethylene Glycol (Miralax) 17 gm PO DAILY [facility] Stop: 04/15/19 09:01 Last Admin: 10/15/18 08:02 Dose: 17 gm Documented by: Quetiapine Fumarate (Seroquel) 25 mg PO Q12H [facility]; Protocol Stop: 04/15/19 21:01 Last Admin: 10/15/18 08:01 Dose: 25 mg Documented by: Risperidone (Risperdal) 0.25 mg PO QPM [facility] Stop: 04/15/19 18:01 Last Admin: 10/14/18 18:37 Dose: 0.25 mg Documented by: Sertraline HCl (Zoloft) 25 mg PO DAILY [facility] Stop: 04/15/19 09:01 Last Admin: 10/15/18 08:01 Dose: 25 mg Documented by: Sucralfate (Carafate) 1 gm PO QIDAC [facility] Stop: 04/15/19 11:31 Last Admin: 10/15/18 08:01 Dose: 1 gm Documented by: Warfarin Sodium (Coumadin Perpt) 1 each PO DAILY@1800 PRN PRN Reason: SEE COMMENTS Stop: 04/15/19 18:01 - Imaging and Cardiology Echo: report reviewed - EKG Interpretation EKG results cardiology: other (No events noted on telemetry the past 12 hours, average heart rate 71, sinus rhythm) Consult Discharge Plan - Plan Referrals: Fredi Valverde MD [Primary Care Provider] -
--- NOTE | 2018-10-15 11:44 | Discharge Summary ---
- NOTES TO OUTPATIENT PROVIDER Notes to Outpatient Provider: Metoprolol dose increased and Amiodarone added by cardiology. AICD shocks for Afib RVR. Requires outpt follow up with Dr Zhang, INR check in 3 days Orders not resulted at time of discharge: Pending orders 10/15/18 06:00 EKG [ECG 12 lead ECG] [ECG] AM 0600 10/16/18 04:00 Prothrombin Time INR [COAG] AM 0400 10/17/18 04:00 Prothrombin Time INR [COAG] AM 0400 10/18/18 04:00 Prothrombin Time INR [COAG] AM 0400 10/19/18 04:00 Prothrombin Time INR [COAG] AM 0400 Date of Encounter: 10/15/18 Time of Encounter: 08:50 - Discharge Diagnosis (1) Defibrillator discharge Priority: Primary Status: Resolved Assessment and Plan: Defibrillator firing 2/2 Afib with RVR -cardiology followed and increased metoprolol and added Amio this admission -he is cleared by cards for dc with outpt follow up with dr Zhang (2) CELE (acute kidney injury) Priority: Secondary Status: Resolved Assessment and Plan: CELE,resolved with holding home acei and lasix UA unremarkable -okay to resume on discharge (3) Atrial fibrillation Priority: Secondary Status: Chronic Assessment and Plan: Afib on Warfarin- paroxysmal, currently NSR AICD discharges were 2/2 Afib RVR TSH, trops, lytes normal this admission, no signs of infectious process -cont BB and amio on dc, fu with Dr Zhang -INR 1.8 on dc, started lovenox bridge but as per cards do not need to bridge, cont warfarin, check INR in 3 days Qualifiers: Atrial fibrillation type: paroxysmal Qualified Code(s): I48.0 - Paroxysmal atrial fibrillation Hospital course: Mr. Vizcarra is a 83 year old male pmhx Afib s/p PPM and AICD, HFrEF 25-30% following with Dr Zhang outpt, Dementia, HTN, CVA who presented with defibrillator firing at SNF. Discharges were found to be related to Afib RVR on interrogation of device. Cards followed throughout admission. Toprol XL was up titrated and Amiodarone was added. He had cele this admission that resolved with holding of his home ACEI and Lasix for a day. His INR dropped to 1.8 on day of DC. No need to bridge per cardiology. His chronic co morbidities were stable throughout admission. Full details of active issues this admission can be found in the diagnoses section of this document. He is medically stable for dc back to SNF. Discharge discussed with: patient, family, nurse Time spent discussing smoking cessation with patient: more than 10 minutes - Time Spent with Patient Total time spent providing and/or coordinating discharge services: Time spent: Greater than 30 minutes (40 min) - Discharge Medications Prescriptions: New Amiodarone [Cordarone] 200 mg PO DAILY tablet Metoprolol XL (24 HR) Succ [Toprol Xl] 50 mg PO DAILY tab.er.24h Continued Warfarin [Coumadin] 2 mg PO SUTUWEFRSA Furosemide [Lasix] 20 mg PO Q48H Atorvastatin Calcium [Lipitor] 20 mg PO DAILY Clopidogrel [Plavix] 75 mg PO DAILY HYDROcodone/Acet 5/325 mg [[place] 5-325 mg] 1 tab PO TID Quetiapine Fumarate [Seroquel] 25 mg PO Q12H 14 Days tablet Albuterol Sulfate [Ventolin Hfa] 1 - 2 puff IH Q4HR PRN PRN Reason: WHEEZING/DYSPNEA Cetirizine HCl 5 mg PO DAILY Donepezil [Aricept] 10 mg PO HS Loperamide [Imodium] 4 mg PO AD PRN PRN Reason: LOOSE STOOLS Oxybutynin Chloride [Ditropan Xl] 5 mg PO DAILY Pantoprazole Sodium [Protonix] 20 mg PO BID Sennosides [Senna] 8.6 mg PO BID Sucralfate [Carafate] 1 gm PO ACHS Sertraline [Zoloft] 25 mg PO DAILY RisperiDONE [Risperdal] 0.25 mg PO HS Ranitidine HCl [Heartburn Relief] 75 mg PO BID Lisinopril [Zestril] 5 mg PO DAILY Acetaminophen [Tylenol] 650 mg PO Q4H PRN PRN Reason: Pain Chlorpheniramine/Dextromethorp [Coricidin Hbp Cough & Cold Tab] 2 tab PO Q4H PRN MDD 4 TABS/24HR PRN Reason: Cold Symptoms Ipratropium/Albuterol Sulfate [Iprat-Albut 0.5-3(2.5) mg/3 ml] 3 ml IH Q4H PRN PRN Reason: COUGH/CONGESTION Magnesium Hydroxide [Milk of Magnesia] 2,400 mg PO DAILY PRN PRN Reason: Constipation Ondansetron HCl 4 mg PO Q8H PRN PRN Reason: Nausea Polyethylene Glycol 3350 [MiraLax bowel prep] 17 gm PO DAILY Warfarin [Coumadin] 1.5 mg PO MOTH Discontinued Metoprolol XL (24 HR) Succ [Toprol Xl] 12.5 mg PO DAILY Home Medications: Atorvastatin Calcium [Lipitor] 20 mg PO DAILY 03/14/16 [History] Clopidogrel [Plavix] 75 mg PO DAILY 03/14/16 [History] Furosemide [Lasix] 20 mg PO Q48H 03/14/16 [History] HYDROcodone/Acet 5/325 mg [[place] 5-325 mg] 1 tab PO TID 03/14/16 [History] Warfarin [Coumadin] 2 mg PO SUTUWEFRSA 03/14/16 [History] Quetiapine Fumarate [Seroquel] 25 mg PO Q12H 14 Days tablet 03/20/16 [Rx] Albuterol Sulfate [Ventolin Hfa] 1 - 2 puff IH Q4HR PRN 05/19/18 [History] Cetirizine HCl 5 mg PO DAILY 05/19/18 [History] Donepezil [Aricept] 10 mg PO HS 05/19/18 [History] Loperamide [Imodium] 4 mg PO AD PRN 05/19/18 [History] Oxybutynin Chloride [Ditropan Xl] 5 mg PO DAILY 05/19/18 [History] Pantoprazole Sodium [Protonix] 20 mg PO BID 05/19/18 [History] Sennosides [Senna] 8.6 mg PO BID 05/19/18 [History] Sucralfate [Carafate] 1 gm PO ACHS 05/19/18 [History] Lisinopril [Zestril] 5 mg PO DAILY 10/13/18 [History] Ranitidine HCl [Heartburn Relief] 75 mg PO BID 10/13/18 [History] RisperiDONE [Risperdal] 0.25 mg PO HS 10/13/18 [History] Sertraline [Zoloft] 25 mg PO DAILY 10/13/18 [History] Acetaminophen [Tylenol] 650 mg PO Q4H PRN 10/14/18 [History] Chlorpheniramine/Dextromethorp [Coricidin Hbp Cough & Cold Tab] 2 tab PO Q4H PRN MDD 4 TABS/24HR 10/14/18 [History] Ipratropium/Albuterol Sulfate [Iprat-Albut 0.5-3(2.5) mg/3 ml] 3 ml IH Q4H PRN 10/14/18 [History] Magnesium Hydroxide [Milk of Magnesia] 2,400 mg PO DAILY PRN 10/14/18 [History] Ondansetron HCl 4 mg PO Q8H PRN 10/14/18 [History] Polyethylene Glycol 3350 [MiraLax bowel prep] 17 gm PO DAILY 10/14/18 [History] Warfarin [Coumadin] 1.5 mg PO MOTH 10/14/18 [History] Amiodarone [Cordarone] 200 mg PO DAILY tablet 10/15/18 [Rx] Metoprolol XL (24 HR) Succ [Toprol Xl] 50 mg PO DAILY tab.er.24h 10/15/18 [Rx] Allergies/Adverse Reactions: Allergy/AdvReac Type Severity Reaction Status Date / Time No Known Allergies Allergy Verified 10/14/18 10:17 Date of admission: 10/14/18 18:08 Primary care physician: Fredi Valverde MD Consults: 10/13/18 18:55 Consult to Cardiology [CONS] Stat Comment: Consulting Provider: [facility] Reason for Consult: defibrillator firing for VT/VF Time Notified: 18:56 Call Completed: Yes Discharging clinician: Hali Valdez - Constitutional Vitals: Temp Pulse Resp BP Pulse Ox 98.2 F 71 14 149/87 99 10/15/18 07:14 10/15/18 07:14 10/15/18 07:14 10/15/18 07:14 10/15/18 07:14 General appearance: Present: cooperative, A&O X 2, pleasant, no acute distress, answers questions appropriately Exam: awake, RN at bedside. He denies any further firing of device, no cp, pressure, palpitations or sob. He is very eager for dc to snf today. Later he became agitated and wanting to leave. His son was present at baseline. he has confusion and some agitation at times with his known dementia. As cards has cleared for dc and he is medically stable he will dc back to snf today. Family without any questions. gen- alert, awake,appears stated age cv- reg rate and rhythm, normal s1,s2, no murmurs appreciated, no le edema lungs- ctabl, no wheezing, i or crackles, normal resp effort on room air neuro- AAOxperson, place, not date, CN grossly intact - Patient Status Disposition: Transfer SNF Condition: Good Overall status at discharge: patient is back to baseline - Discharge Instructions Follow Up With: Fredi Valverde MD [Primary Care Provider] - Jose Zhang MD [Partnered Physician] - - Diet and Activity Activity: increase activity as tolerated Diet: low fat, low cholesterol, low salt diet
--- NOTE | 2018-10-15 11:59 | Physician Discharge Referral ---
ExtendedCare Referral Info Provider in Charge after Transfer: PCP - Diagnosis (1) Defibrillator discharge Priority: Primary Status: Resolved (2) CELE (acute kidney injury) Priority: Secondary Status: Resolved (3) Atrial fibrillation Priority: Secondary Status: Chronic (4) Heart failure with reduced ejection fraction Priority: Secondary Status: Chronic (5) Cerebrovascular disease Priority: Secondary Status: Chronic (6) HTN (hypertension) Priority: Secondary Status: Chronic (7) Dementia Priority: Secondary Status: Chronic - Transfer Medications Home Medications: Atorvastatin Calcium [Lipitor] 20 mg PO DAILY 03/14/16 [History] Clopidogrel [Plavix] 75 mg PO DAILY 03/14/16 [History] Furosemide [Lasix] 20 mg PO Q48H 03/14/16 [History] HYDROcodone/Acet 5/325 mg [[place] 5-325 mg] 1 tab PO TID 03/14/16 [History] Warfarin [Coumadin] 2 mg PO SUTUWEFRSA 03/14/16 [History] Quetiapine Fumarate [Seroquel] 25 mg PO Q12H 14 Days tablet 03/20/16 [Rx] Albuterol Sulfate [Ventolin Hfa] 1 - 2 puff IH Q4HR PRN 05/19/18 [History] Cetirizine HCl 5 mg PO DAILY 05/19/18 [History] Donepezil [Aricept] 10 mg PO HS 05/19/18 [History] Loperamide [Imodium] 4 mg PO AD PRN 05/19/18 [History] Oxybutynin Chloride [Ditropan Xl] 5 mg PO DAILY 05/19/18 [History] Pantoprazole Sodium [Protonix] 20 mg PO BID 05/19/18 [History] Sennosides [Senna] 8.6 mg PO BID 05/19/18 [History] Sucralfate [Carafate] 1 gm PO ACHS 05/19/18 [History] Lisinopril [Zestril] 5 mg PO DAILY 10/13/18 [History] Ranitidine HCl [Heartburn Relief] 75 mg PO BID 10/13/18 [History] RisperiDONE [Risperdal] 0.25 mg PO HS 10/13/18 [History] Sertraline [Zoloft] 25 mg PO DAILY 10/13/18 [History] Acetaminophen [Tylenol] 650 mg PO Q4H PRN 10/14/18 [History] Chlorpheniramine/Dextromethorp [Coricidin Hbp Cough & Cold Tab] 2 tab PO Q4H PRN MDD 4 TABS/24HR 10/14/18 [History] Ipratropium/Albuterol Sulfate [Iprat-Albut 0.5-3(2.5) mg/3 ml] 3 ml IH Q4H PRN 10/14/18 [History] Magnesium Hydroxide [Milk of Magnesia] 2,400 mg PO DAILY PRN 10/14/18 [History] Ondansetron HCl 4 mg PO Q8H PRN 10/14/18 [History] Polyethylene Glycol 3350 [MiraLax bowel prep] 17 gm PO DAILY 10/14/18 [History] Warfarin [Coumadin] 1.5 mg PO MOTH 10/14/18 [History] Amiodarone [Cordarone] 200 mg PO DAILY tablet 10/15/18 [Rx] Metoprolol XL (24 HR) Succ [Toprol Xl] 50 mg PO DAILY tab.er.24h 10/15/18 [Rx] Allergies/Adverse Reactions: Allergy/AdvReac Type Severity Reaction Status Date / Time No Known Allergies Allergy Verified 10/14/18 10:17 - Respiratory Orders None Smoking Cessation: Smoking cessation has been advised. For more information, call the [place] Tobacco Quit Line at 1-492-JSWP-NOW. - Lab Orders Lab Orders: Other (include drug levels w/frequency) (INR check in 3 days) - Ancillary Orders May use pressure relief devices daily prn - Advance Directives Code Status: Full Code - Mobility Orders Ambulate - Rehabiliation Orders Rehab Potential: Fair Rehab Orders: ROM Exercises, Evaluation for Physical Therapy, Evaluation for Occupational Therapy - Treatments Skin tear care topically daily PRN per policy - Diet Orders No Added Salt (DEEJAY), Cardiac CERTIFICATION: I certify that the transfer of the above named patient to an Extended Care Facility is necessary for the continuing treatment of the diagnosis listed. The above information is true and accurate reflection of patient's current condition. Confidential - Redisclosure prohibited without a patient's written consent.
== END 2018-10-15 13:43 | DRG 309 ==
LOC: 2NENU 16:26 → EMEROOARM 16:26 → SUATTDRO 22:16 → 2NENU 23:04
PROVIDERS: ADMIT Family Medicine; ATTEND Internal Medicine

== ENCOUNTER 2019-01-11 20:29 | Inpatient (IN) ==
[2019-01-11 21:08] LABS: Basophils % 0.3 %; Eosinophils # 0.1 K/mcL (0.0-0.6); Eosinophils % 0.8 %; Hematocrit 31.9 % (37.5-50.1); Hemoglobin 10.1 g/dL (12.9-16.9); Immature Granulocytes % 0.4 % (0-4); Lymphocytes # 1.6 K/mcL (0.6-4.6); Mean Corpuscular HGB Conc 31.7 g/dL (31.6-35.5); Mean Corpuscular Hemoglobin 29.3 pg (28.0-33.3); Mean Corpuscular Volume 92.5 fL (83.0-100.0); Mean Platelet Volume 10.8 fL (9.4-12.4); Monocytes # 0.9 K/mcL (0.0-1.3); Monocytes % 11.3 %; Neutrophils # 5.1 K/mcL (1.6-8.9); Platelet Count 175 K/mcL (140-400); Red Blood Count 3.45 M/mcL (4.19-5.50); Red Cell Distribution Width 15.2 % (11.5-14.5); Segmented Neutrophils % 66.2 %; White Blood Count 7.7 K/mcL (4.3-11.1)
[2019-01-11 21:16] LABS: INR 2.9; Prothrombin Time 33.4 Seconds (9.4-12.1)
[2019-01-11 21:31] LABS: Calcium 8.9 mg/dL (8.6-10.3); Magnesium 2.1 mg/dL (1.6-2.6)
[2019-01-11 21:54] LABS: Troponin I 0.06 ng/mL (< 0.04)
[2019-01-11] MEDS ORDERED: Furosemide 40 MG/4 ML VIAL IVP ONE (23:14)
--- NOTE | 2019-01-11 23:18 | Emergency Department Note ---
Disposition Clinical Impression: AICD discharge, Ventricular tachycardia CHF exacerbation Qualifiers: Heart failure type: unspecified Qualified Code(s): I50.9 - Heart failure, unspecified Fall Qualifiers: Encounter type: initial encounter Qualified Code(s): W19.XXXA - Unspecified fall, initial encounter Disposition: Admitted As Inpatient Condition: Serious Forms: ED Satisfaction Letter Time of Disposition: 23:23 General Adult HPI - General Chief complaint: ED Arrhythmia/Palpitations Stated complaint: AICD went off x3 Time Seen by Provider: 01/11/19 20:30 Source: patient, family Mode of arrival: ambulatory Limitations: no limitations Nursing Notes Reviewed: Yes Vital Signs Reviewed: Yes - History of Present Illness HPI Narrative: 83M with PMHx of afib, CAD, dementia, HTN and previous AK presents emergency department after his AICD discharge 3 times over the past 24 hours. Patient was at the long term and is reported that the AICD may have discharged once yesterday. They tried to interrogate the device but were unable to get a result from this. Today the AICD discharged twice, causing the patient to fall. He states he did not hit his head but did land on his left side. He denies any significant tenderness to his left arm or left side. He denies loss of consciousness. The patient's daughter accompanies him and states that he does not wish to have any chest compressions or be placed on a breathing machine but he is agreeable with continued electrocution if his heart goes out of rhythm. Patient is unable to provide further history but has no complaints at this time. Pain Scale: 0 - Related Data Home Medications Medication Instructions Recorded Confirmed Atorvastatin Calcium [Lipitor] 20 mg PO DAILY 03/14/16 01/11/19 Clopidogrel [Plavix] 75 mg PO DAILY 03/14/16 01/11/19 Albuterol Sulfate [Ventolin Hfa] 1 - 2 puff IH Q4HR PRN 05/19/18 01/11/19 Cetirizine HCl 5 mg PO DAILY 05/19/18 01/11/19 Donepezil [Aricept] 10 mg PO HS 05/19/18 01/11/19 Pantoprazole Sodium [Protonix] 20 mg PO BID 05/19/18 01/11/19 Sennosides [Senna] 8.6 mg PO BID 05/19/18 01/11/19 Ranitidine HCl [Heartburn Relief] 75 mg PO BID 10/13/18 01/11/19 Sertraline [Zoloft] 25 mg PO DAILY 10/13/18 01/11/19 Chlorpheniramine/Dextromethorp 2 tab PO Q4H PRN MDD 4 TABS/24HR 10/14/18 01/11/19 [Coricidin Hbp Cough-Cold Tab] Ipratropium/Albuterol Sulfate 3 ml IH Q4H PRN 10/14/18 01/11/19 [Iprat-Albut 0.5-3(2.5) mg/3 ml] Magnesium Hydroxide [Milk of 2,400 mg PO DAILY PRN 10/14/18 01/11/19 Magnesia] Polyethylene Glycol 3350 [MiraLax 17 gm PO QAM 10/14/18 01/11/19 bowel prep] Acetaminophen [Tylenol] 650 mg PO Q4HR PRN 11/19/18 01/11/19 Oxybutynin Chloride [Ditropan XL] 5 mg PO DAILY 11/19/18 01/11/19 risperiDONE [RisperDAL] 0.25 mg PO HS 11/19/18 01/11/19 Lisinopril [Zestril] 5 mg PO DAILY 01/11/19 01/11/19 Loperamide HCl [Imodium A-D] 4 mg PO DAILY 01/11/19 01/11/19 Metoprolol XL (24 HR) Succ [Toprol 50 mg PO DAILY 01/11/19 01/11/19 Xl] Ondansetron HCl [Zofran] 4 mg PO Q8HR PRN 01/11/19 01/11/19 Quetiapine Fumarate [SEROquel] 25 mg PO BID 01/11/19 01/11/19 Warfarin Sodium 1 mg PO DAILY 01/11/19 01/11/19 Previous Rx's Medication Instructions Recorded Amiodarone HCl 200 mg PO DAILY #0 11/26/18 Furosemide [Lasix] 20 mg PO Q48H #30 11/26/18 HYDROcodone/Acet 5/325 mg [[place] 1 tab PO TID 1 Days #3 tablet 11/26/18 5-325 mg] Allergies Allergy/AdvReac Type Severity Reaction Status Date / Time No Known Allergies Allergy Verified 10/14/18 10:17 All systems ED: reviewed and negative except as stated. Review of Systems: As Per HPI Constitutional: Denies: fever, chills, weakness Cardiovascular: Denies: chest pain, palpitations, dyspnea on exertion Respiratory: Denies: cough, dyspnea, wheezes Gastrointestinal: Denies: abdominal pain, nausea, vomiting Musculoskeletal: Denies: back pain, neck pain Neurological: Denies: headache Endocrine: Denies: fatigue Past Medical History - Past Medical History Attestation: Yes The following information was validated with the patient. Source: patient Medical history: Reports: arthritis, atrial fibrillation, cardiomyopathy, coronary artery disease, dementia, GERD, hypertension, myocardial infarction Surgical history: Reports: carotid endarterectomy, colectomy, herniorrhaphy, pacemaker/AICD Psychiatric history: Reports: no psych history - Social History Smoking Status: Current every day smoker Smokeless Tobacco Status: Yes Alcohol use: Reports: none Drug use: Reports: none Physical Exam - General Limitations: no limitations General appearance: alert, in no apparent distress - Head Head exam: atraumatic, normocephalic - Eye Eye exam: Present: normal appearance, EOMI - Chest Chest inspection: Present: normal inspection. Absent: tenderness, rash - Respiratory Respiratory exam: Present: normal lung sounds bilaterally. Absent: wheezes - Cardiovascular Cardiovascular exam: Present: normal rhythm, tachycardia - Abdominal Exam Abdominal exam: Present: soft, Non-Tender. Absent: distention, guarding, rebound, rigidity - Extremities Exam Extremities exam: Present: normal inspection. Absent: tenderness, pedal edema - Neurological Exam Neurological exam: Present: alert. Absent: oriented X3 - Psychiatric Psychiatric exam: Present: normal affect, normal mood - Skin Skin exam: Present: warm, dry, intact Course Vital Signs Temperature 97.5 F L 01/11/19 20:36 Pulse Rate 113 01/11/19 20:36 Respiratory Rate 27 01/11/19 20:36 Blood Pressure 145/131 01/11/19 20:36 O2 Sat by Pulse Oximetry 94 01/11/19 20:36 Temperature 97.5 F L 01/11/19 20:36 Pulse Rate 112 01/11/19 22:00 Respiratory Rate 20 01/11/19 22:00 Blood Pressure 110/70 01/11/19 22:00 O2 Sat by Pulse Oximetry 98 01/11/19 22:00 Oxygen Delivery Oxygen Delivery Room Air Medical Decision Making - MDM Narrative Medical decision making narrative: Patient presents to emergency department from long term after his AICD di scharged twice today causing him to fall. The patient does not currently complain of anything. We will obtain EKG, basic labs, BMP, troponin, chest x- ray, and CT scan of the patient's head and neck as the patient is on Coumadin and fell. 2322 - patient's labs are resulted which show a mildly elevated troponin at 0.06, creatinine at his baseline, and a BNP of 2000. Chest x-ray demonstrates congestive heart failure. CT scans of the head and neck are within normal limits. We are waiting on interrogation of pacemaker and the patient will be admitted to the hospital for further cardiac workup and monitoring. Pt was signed out to Dr. Perez for further management of his care. Patient will be given Lasix for his CHF. - Medical Records Medical records reviewed: Yes I reviewed the patient's medical records. - Lab Data Lab results reviewed: Yes I reviewed the patient's lab results. Result diagrams: 01/11/19 20:43 01/11/19 20:43 Lab Results 01/11/19 01/11/19 01/11/19 Range/Units 20:43 20:43 20:43 WBC 7.7 (4.3-11.1) K/mcL RBC 3.45 L (4.19-5.50) M/mcL Hgb 10.1 L (12.9-16.9) g/dL Hct 31.9 L (37.5-50.1) % MCV 92.5 (83.0-100.0) fL MCH 29.3 (28.0-33.3) pg MCHC 31.7 (31.6-35.5) g/dL RDW 15.2 H (11.5-14.5) % Plt Count 175 (140-400) K/mcL MPV 10.8 (9.4-12.4) fL Immature Gran % 0.4 (0-4) % Seg Neutrophils % 66.2 % Lymphocytes % 21.0 % Monocytes % 11.3 % Eosinophils % 0.8 % Basophils % 0.3 % Neutrophils # 5.1 (1.6-8.9) K/mcL Lymphocytes # 1.6 (0.6-4.6) K/mcL Monocytes # 0.9 (0.0-1.3) K/mcL Eosinophils # 0.1 (0.0-0.6) K/mcL Basophils # 0.0 (0.0-0.2) K/mcL PT 33.4 H (9.4-12.1) Seconds INR 2.9 Sodium 139 (136-145) mEq/L Potassium 4.0 (3.5-5.1) mEq/L Chloride 105 (98-107) mEq/L Carbon Dioxide 25 (23-29) mEq/L BUN 20 (8-23) mg/dL Creatinine 1.63 H (0.70-1.30) mg/dL Est GFR ( Amer) 49 L (> 60) Est GFR (Non-Af Amer) 40 L (> 60) BUN/Creatinine Ratio 12 (6-26) Glucose 129 H (70-105) mg/dL Calculated Osmolality 292 (280-300) Calcium 8.9 (8.6-10.3) mg/dL Magnesium 2.1 (1.6-2.6) mg/dL Troponin I 0.06 H* (< 0.04) ng/mL B-Natriuretic Peptide (Less than 100) pg/mL 01/11/19 Range/Units 22:05 WBC (4.3-11.1) K/mcL RBC (4.19-5.50) M/mcL Hgb (12.9-16.9) g/dL Hct (37.5-50.1) % MCV (83.0-100.0) fL MCH (28.0-33.3) pg MCHC (31.6-35.5) g/dL RDW (11.5-14.5) % Plt Count (140-400) K/mcL MPV (9.4-12.4) fL Immature Gran % (0-4) % Seg Neutrophils % % Lymphocytes % % Monocytes % % Eosinophils % % Basophils % % Neutrophils # (1.6-8.9) K/mcL Lymphocytes # (0.6-4.6) K/mcL Monocytes # (0.0-1.3) K/mcL Eosinophils # (0.0-0.6) K/mcL Basophils # (0.0-0.2) K/mcL PT (9.4-12.1) Seconds INR Sodium (136-145) mEq/L Potassium (3.5-5.1) mEq/L Chloride (98-107) mEq/L Carbon Dioxide (23-29) mEq/L BUN (8-23) mg/dL Creatinine (0.70-1.30) mg/dL Est GFR ( Amer) (> 60) Est GFR (Non-Af Amer) (> 60) BUN/Creatinine Ratio (6-26) Glucose (70-105) mg/dL Calculated Osmolality (280-300) Calcium (8.6-10.3) mg/dL Magnesium (1.6-2.6) mg/dL Troponin I (< 0.04) ng/mL B-Natriuretic Peptide 2060 H (Less than 100) pg/mL - Radiology Data Radiology results reviewed: Yes I reviewed the patient's radiology results. - EKG Data EKG #1 EKG attestation: Yes I reviewed and interpreted this EKG. EKG results narrative: EKG obtained at 2034 on Heart rate 113 bpm, IL interval 60, QRS duration 191, QT 410, QTC 563 Sinus tachycardia with intraventricular conduction delay. No significant changes when compared to previous EKG dated 11/21/2018 Attestation Statement - Attestation Attestation: I have seen this patient with the resident physician, I have personally evaluated this patient. I had reviewed the chart and document dictation by the resident physician and aM in agreement with the information documented by the resident physician. Please see documentation by the resident physician for co mplete chart including past medical history, family medical history, review of systems, current history and physical and laboratory and imaging studies. I was present for all procedures, provided direct supervision for all procedures, was present for the entirety of all procedures and provided direct guidance during the procedures. Please see documentation by the resident physician for any procedures performed. I have reviewed all interpretations of EKGs, and reviewed all EKGs performed on patient's as well. I have also reviewed reports of imaging as provided by radiology. Patient presented to the emergency department with being shocked by his defibrillator 3 times a day one of the time she was shocked it caused him to fall and it is unclear as to whether he passed out he did hit his head and he is on a blood thinner. He denies significant headache he denies neck pain chest pain shortness of breath or any symptoms associated with being shocked. The family reports that he was recently admitted about a month ago and they had to adjust some of his settings of his pacemaker, he had heart rates around 120 and had a hard time getting him to capture better and have his heart rate decreased but were able to finally do so and he was started on amiodarone which she has already been taking. The patient currently has no significant symptoms. He has had no fevers or chills. He has had no abdominal pain no black or bloody stool. No new leg swelling. EKG showed no evidence of acute change from prior EKG no evidence of acute ischemia. Chest x-ray showed findings suggestive of potentially some mild CHF. Troponin was borderline at 0.04, which may be related to him being shocked. Remainder of the laboratory studies were within acceptable limits and unchanged from his baseline. We had his pacemaker interrogated, as well as sent in for a head CT and cervical spine CT secondary to him falling during one of these episodes and hitting his head these images showed no acute findings his pacemaker defibrillator, showed evidence on the interrogation of several episodes of V. fib and V. tach, with interventions performed by the defibrillator. We were awaiting admission to the hospital, when he developed a run of V. tach here in the emergency department. This was captured on the monitor, he was attempted by his pacemaker to be overdrive paced out of this, but this was unsuccessful, and then he received electrical cardioversion with successful cardioversion the patient had absolutely no symptoms during this episode. And had successful cardioversion by his pacemaker defibrillator. Secondary to multiple runs of jugular abnormality, as well as multiple electrical cardioversions, patient was admitted to the hospital. Discuss consideration of further medications with the hospitalist, and with the hospitalist also discussed need for cardiology consultation in the emergency department, the hospital states that he can provide further consultation phone calls, and will continue the patient's amiodarone, and make any further adjustments to his medications in the hospital. Patient was admitted to the hospitalist service for further evaluation and man agement. After his electrical cardioversion, by his pacemaker defibrillator heart rate was down in the 60s. He is already anticoagulated with an INR of 2.9 on Coumadin. Total critical care time as provided by myself excluding any procedures or is 35 minutes.
[2019-01-12 00:29] LABS: Thyroid Stimulating Hormone 3.79 mcIU/mL (0.340-5.600)
--- NOTE | 2019-01-12 01:37 | Internal Med History&Physical ---
Date of Encounter: 01/12/19 Time of Encounter: 01:36 Internal Medicine - H&P: HPI Chief complaint: shock ICD firiing. Admitted From: Home Plans for Post Hospital Care: Home History of present illness: Carmita is a 83 year old male past medical history of Afib s/p PPM, HFrEF 25-30% s/p ICD follows with Dr. Estevez, Dementia, HTN, CVA who initially presented to our ED from [facility] after patient was noted to be ICD shocking the patient and showing greater than that is consistent with ventricular tachycardia. Patient is demented and history is limited. History is mostly obtained from daughter at bedside. Patient had ICD placed in 25 years ago and has not had any shocks since then except in the summer while taking a shower. group home called the patient's family and was told to result of his V. tach and was told to come to the ED. Patient also has noted an positional change from standing to sitting has noted to have rhythm changes and being shot with his ICD. Rhythm there after being confirming ventricular tachycardia. Patient recently was admitted last month for acute on chronic hypoxic respiratory failure and CHF exacerbation. Patient thereafter [facility] and had multiple episodes of ICD firing rhythm with rhythm being ventricular tachycardia. The skin today to urinal. Per daughter patient is unclear if the patient has received his amiodarone dose today in the morning as he left at 7:30 AM. Repeat patient's specimen O, surgical, family and social history. Patient remains DNR/DNI verfied by daughter Past Med Surg Social Fam HX - Past Medical History Medical history: arthritis, atrial fibrillation, cardiomyopathy, coronary artery disease, dementia, GERD, hypertension, myocardial infarction Additional medical history: cerebral infarction. gastritis Psychiatric history: no psych history - Past Surgical History Surgical History: carotid endarterectomy, colectomy, herniorrhaphy, pacemaker/AICD - Social History Smoking Status: Current every day smoker Smokeless Tobacco Status: Yes Alcohol use: none Drug use: none - Family History Mother Adopted: No Family Member Ethnicity: Non- Living Status: Hx Family Cardiac Disorders: Yes Internal Medicine - H&P: Meds Atorvastatin Calcium [Lipitor] 20 mg PO DAILY 03/14/16 [History] Clopidogrel [Plavix] 75 mg PO DAILY 03/14/16 [History] Albuterol Sulfate [Ventolin Hfa] 1 - 2 puff IH Q4HR PRN 05/19/18 [History] Cetirizine HCl 5 mg PO DAILY 05/19/18 [History] Donepezil [Aricept] 10 mg PO HS 05/19/18 [History] Pantoprazole Sodium [Protonix] 20 mg PO BID 05/19/18 [History] Sennosides [Senna] 8.6 mg PO BID 05/19/18 [History] Ranitidine HCl [Heartburn Relief] 75 mg PO BID 10/13/18 [History] Sertraline [Zoloft] 25 mg PO DAILY 10/13/18 [History] Chlorpheniramine/Dextromethorp [Coricidin Hbp Cough-Cold Tab] 2 tab PO Q4H PRN MDD 4 TABS/24HR 10/14/18 [History] Ipratropium/Albuterol Sulfate [Iprat-Albut 0.5-3(2.5) mg/3 ml] 3 ml IH Q4H PRN 10/14/18 [History] Magnesium Hydroxide [Milk of Magnesia] 2,400 mg PO DAILY PRN 10/14/18 [History] Polyethylene Glycol 3350 [MiraLax bowel prep] 17 gm PO QAM 10/14/18 [History] Acetaminophen [Tylenol] 650 mg PO Q4HR PRN 11/19/18 [History] Oxybutynin Chloride [Ditropan XL] 5 mg PO DAILY 11/19/18 [History] risperiDONE [RisperDAL] 0.25 mg PO HS 11/19/18 [History] Amiodarone HCl 200 mg PO DAILY #0 11/26/18 [Rx] Furosemide [Lasix] 20 mg PO Q48H #30 11/26/18 [Rx] HYDROcodone/Acet 5/325 mg [[place] 5-325 mg] 1 tab PO TID 1 Days #3 tablet 11/26/18 [Rx] Lisinopril [Zestril] 5 mg PO DAILY 01/11/19 [History] Loperamide HCl [Imodium A-D] 4 mg PO DAILY 01/11/19 [History] Metoprolol XL (24 HR) Succ [Toprol Xl] 50 mg PO DAILY 01/11/19 [History] Ondansetron HCl [Zofran] 4 mg PO Q8HR PRN 01/11/19 [History] Quetiapine Fumarate [SEROquel] 25 mg PO BID 01/11/19 [History] Warfarin Sodium 1 mg PO DAILY 01/11/19 [History] Allergy/AdvReac Type Severity Reaction Status Date / Time No Known Allergies Allergy Verified 10/14/18 10:17 All Systems PM: A 10-system review of systems was performed and is negative for pertinent findi ngs except as documented above in the HPI. Review of systems: General:No unintentional weightloss, No fever Head: No headahce, No injury. Ears: No discharge, No earache Eyes: No drainage, No eye pain Mouth and Throat: No new ulcers, No pain Nose and Sinus: No new congestion, No pain, Respiratory: No cough, No sputum production, No dyspnea Cardiovascular: No chest pain, No palpitations. Gastrointestinal: No nausea, No vomiting. No abdominal pain. Genital Tract: No discharge, No pain Urinary Tract: No dysuria, No discharge. MSK: No new/worsening joint pain, No new/worsening muscle ache. Endocrine: No cold intolerance, No polyuria Psychological: No suicidal, No homocidal ideation. - Constitutional Vitals: Temp Pulse Resp BP Pulse Ox 97.5 F L 67 25 162/73 98 01/11/19 20:36 01/11/19 23:44 01/11/19 23:44 01/11/19 23:44 01/11/19 23:44 Exam: General Appearance: Appearing as age, well-nourished Head: Atraumatic normocephalic Skin: Normal texture, normal turgor, warm, dry. Eyes: Conjunctivae pale with no erythema, drainage, or ulcers. Anicteric. Neck: No Lymphadenopathy in the anterior/posterior cervical chain. No thyromegaly, masses or ulcers. Trachea midline.JVD present Heart: RRR, no murmurs. Capillary refill 2 seconds Lungs: No accessory muscle usage, lungs clear to auscultation bilaterally, no wheezes or crackles. Extremities: minimal pitting edema, No clubbing, No cyanosis. Abdomen: Non-distended, normoactive bowel sounds. non-tender to palpation, no hepatomegally. No guarding. Neuro: AOx3 with no new sensory loss or focal deficits. MSK: Strength 5/5 Upper extremity equal bilaterally. Strength 5/5 Lower extremity equal bilaterally Internal Med - H&P Results - Labs CBC & Chem 7: 01/12/19 04:17 01/12/19 04:17 Labs: Short CBC 01/11/19 Range/Units 20:43 WBC 7.7 (4.3-11.1) K/mcL Hgb 10.1 L (12.9-16.9) g/dL Hct 31.9 L (37.5-50.1) % Plt Count 175 (140-400) K/mcL Neutrophils # 5.1 (1.6-8.9) K/mcL BMP 01/11/19 20:43 Sodium 139 Potassium 4.0 Chloride 105 Carbon Dioxide 25 BUN 20 Creatinine 1.63 H Glucose 129 H Calcium 8.9 Cardiac Enzymes 01/11/19 Range/Units 20:43 Troponin I 0.06 H* (< 0.04) ng/mL - Impressions ITS Impressions Chest X-Ray 01/11/19 21:36 IMPRESSION: Findings suggest congestive heart failure D/ / Tremayne Orozco MD / Tremayne Orozco MD Interpreting Provider: Tremayne Orozco MD Head CT 01/11/19 22:49 IMPRESSION: No acute intracranial abnormality. Diffuse atrophic changes with findings suggesting chronic microvascular ischemia D/ / Tremayne Orozco MD / Tremayne Orozco MD Interpreting Provider: Tremayne Orozco MD Cervical Spine CT 01/11/19 22:51 IMPRESSION: No acute abnormality of the cervical spine. D/ / Tremayne Orozco MD / Tremayne Orozco MD Interpreting Provider: Tremayne Orozco MD - Summary of Assessment and Plan Summary of Assessment and Plan: 1.Sustained monomorphic ventricular tachycardia: ICD shock patient twice in the ED and returned to rhythm. Electrolytes, TSH, echocardiogram, ACS workup Amiodarone bolus and drip to be given. Cardiology consultation. Patient would benefit from hospice Acute on Chronic Systolic HF, LVEF30%, due to ICM: Chest x-ray cardiomegaly, pulmonary congestion, BNP 2059, on exam JVD, reviewed her rhythm strip monomorphic ventricular tachycardia Diuresis: given ad responsive strict I/O Cardiology consultation. Unclear if would benefit from entresto, spironolactone(creatinine< 2.5 and no hyperkalemia). Acute normocytic anemia: Anemia panel ordered. Chronic medical disease: Dementia: Restart medication psych bipolar: Restart medication CKD: Continue medication. CAD: Aspirin Plavix. DVT prophylaxis: Anticoagulated with warfarin Disposition: Likely > 2 day stay - Time Spent With Patient Total time spent is greater than 36 minutes 50% in coordination of care (as documented) at patient's floor/unit and/or counseling patient: Greater than 35 minutes
[2019-01-12] MEDS ORDERED: Acetaminophen 325 MG TABLET PO PRN (01:51)
[2019-01-12] MEDS ORDERED: [UNRECOGNIZED DRUG - OTHER] PO PRN (01:51)
[2019-01-12] MEDS ORDERED: Ipratropium/Albuterol Neb 3 ML IH PRN (01:51)
[2019-01-12] MEDS ORDERED: Nicotine 2 MG GUM BC PRN (02:16)
[2019-01-12] MEDS ORDERED: Naloxone 0.4 MG/ML INJ IVP PRN (02:16)
[2019-01-12] MEDS: *HR* HYDROcodone/Acet 5/325 mg TABLET PO SCH ×4 (03:58→21:02)
[2019-01-12] MEDS: risperiDONE 0.25 MG TABLET PO SCH ×2 (04:05→21:02)
[2019-01-12 04:43] LABS: Basophils % 0.3 %; Eosinophils % 0.4 %; Hematocrit 30.6 % (37.5-50.1); Hemoglobin 9.5 g/dL (12.9-16.9); Immature Granulocytes % 0.4 % (0-4); Lymphocytes # 1.7 K/mcL (0.6-4.6); Lymphocytes % 22.5 %; Mean Corpuscular Hemoglobin 28.3 pg (28.0-33.3); Mean Corpuscular Volume 91.1 fL (83.0-100.0); Mean Platelet Volume 10.4 fL (9.4-12.4); Monocytes # 0.7 K/mcL (0.0-1.3); Monocytes % 9.5 %; Neutrophils # 5.1 K/mcL (1.6-8.9); Platelet Count 157 K/mcL (140-400); Red Blood Count 3.36 M/mcL (4.19-5.50); Red Cell Distribution Width 15.4 % (11.5-14.5); Retculocyte # 0.05 M/mcL (0.05-0.10); Reticulocyte % 1.6 % (1.6-2.8); Segmented Neutrophils % 66.9 %; White Blood Count 7.6 K/mcL (4.3-11.1)
[2019-01-12 04:57] LABS: INR 2.9; Prothrombin Time 33.1 Seconds (9.4-12.1)
[2019-01-12 05:05] LABS: Chol/HDL Ratio 3.6 (0-4.9); Magnesium 1.9 mg/dL (1.6-2.6); Phosphorous 4.1 mg/dL (2.7-4.5); Potassium 3.9 mEq/L (3.5-5.1)
[2019-01-12 05:16] LABS: Thyroid Stimulating Hormone 3.49 mcIU/mL (0.340-5.600)
[2019-01-12 05:19] LABS: Triiodothyronine (T3) Free 2.64 pg/mL (2.50-3.90)
[2019-01-12 05:26] LABS: Folate 16.1 ng/mL (3.0-16.0)
[2019-01-12] MEDS ORDERED: Aspirin Enteric Coated 81 MG Tablet PO ONE (05:29)
[2019-01-12] MEDS: Nicotine 21 MG PATCH.TD24 TD SCH (08:23)
[2019-01-12] MEDS: Famotidine 20 MG TABLET PO SCH ×2 (08:24→17:37)
[2019-01-12] MEDS: Loratadine 10 MG TABLET PO SCH (08:24)
[2019-01-12] MEDS ORDERED: *HR* Amiodarone 200 MG TABLET PO SCH (09:00)
[2019-01-12] MEDS ORDERED: Metoprolol XL (24 HR) Succ 50 MG TAB.ER.24H PO SCH (09:00)
[2019-01-12] MEDS: Furosemide 40 MG/4 ML VIAL IVP SCH (09:52)
--- NOTE | 2019-01-12 10:00 | Electrocardiograph Report ---
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
--- NOTE | 2019-01-12 12:23 | Cardiology Consult Note ---
<DunreithLindsay kimbroughn - Last Filed: 01/12/19 12:20> Date of Encounter: 01/12/19 Time of Encounter: 10:30 Assessment and Plan (1) AICD discharge Current Visit: Yes Status: Acute Per interrogation, patient was shocked once on Friday and twice on Friday. Also shocked in our ED. Was admitted last month and found to be in sustained slow VT for which he was started on Amiodarone 200mg. At that time, device settings were adjusted to only allow two shocks per event per family request. Will increase Toprol XL to 75mg and consult EP for further recs. (2) Ventricular tachycardia Current Visit: Yes Status: Acute See above for assessment and plan. Discussion w patient/family: The assessment and plan as outlined above was discussed with the patient and/or family members who expressed understanding and agreement. All questions were answered. Thank you for involving us in the care of your patient. Please call with any questions. The above assessment and plan will be discussed with Dr. Weinberg and I will make changes as necessary. History of Present Illness Consult date: 01/12/19 Consult reason: VT requiring ICD shocks History of present illness: Mr. 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 [facility] called the patient's family and was told to result of his V. tach and was told to come to the ED. History is mostly obtained from daughter in law at bedside and daughter/POA on the phone. Report patient has been doing well since admission last month. Per family, pt had ICD placed in 25 years ago and has not had any shocks since then except in the summer while taking a shower. Patient was admitted last month for acute on chronic hypoxic respiratory failure, CHF exacerbation and found to be in slow VT for which he was started on Amiodarone. Patient remains DNR/DNI verfied by daughter, Karissa that is the POA. Past Med Surg Social Fam HX - Past Medical History Medical history: arthritis, atrial fibrillation, cardiomyopathy, coronary artery disease, dementia, GERD, hypertension, myocardial infarction Additional medical history: cerebral infarction. gastritis Psychiatric history: no psych history - Past Surgical History Surgical History: carotid endarterectomy, colectomy, herniorrhaphy, pacemaker/AI CD - Social History Smoking Status: Current every day smoker Smokeless Tobacco Status: Yes Alcohol use: none Drug use: none - Family History Mother Adopted: No Family Member Ethnicity: Non- Living Status: Hx Family Cardiac Disorders: Yes Medications and Allergies Atorvastatin Calcium [Lipitor] 20 mg PO DAILY 03/14/16 [History] Clopidogrel [Plavix] 75 mg PO DAILY 03/14/16 [History] Albuterol Sulfate [Ventolin Hfa] 1 - 2 puff IH Q4HR PRN 05/19/18 [History] Cetirizine HCl 5 mg PO DAILY 05/19/18 [History] Donepezil [Aricept] 10 mg PO HS 05/19/18 [History] Pantoprazole Sodium [Protonix] 20 mg PO BID 05/19/18 [History] Sennosides [Senna] 8.6 mg PO BID 05/19/18 [History] Ranitidine HCl [Heartburn Relief] 75 mg PO BID 10/13/18 [History] Sertraline [Zoloft] 25 mg PO DAILY 10/13/18 [History] Chlorpheniramine/Dextromethorp [Coricidin Hbp Cough-Cold Tab] 2 tab PO Q4H PRN MDD 4 TABS/24HR 10/14/18 [History] Ipratropium/Albuterol Sulfate [Iprat-Albut 0.5-3(2.5) mg/3 ml] 3 ml IH Q4H PRN 10/14/18 [History] Magnesium Hydroxide [Milk of Magnesia] 2,400 mg PO DAILY PRN 10/14/18 [History] Polyethylene Glycol 3350 [MiraLax bowel prep] 17 gm PO QAM 10/14/18 [History] Acetaminophen [Tylenol] 650 mg PO Q4HR PRN 11/19/18 [History] Oxybutynin Chloride [Ditropan XL] 5 mg PO DAILY 11/19/18 [History] risperiDONE [RisperDAL] 0.25 mg PO HS 11/19/18 [History] Amiodarone HCl 200 mg PO DAILY #0 11/26/18 [Rx] Furosemide [Lasix] 20 mg PO Q48H #30 11/26/18 [Rx] HYDROcodone/Acet 5/325 mg [[place] 5-325 mg] 1 tab PO TID 1 Days #3 tablet 11/26/18 [Rx] Lisinopril [Zestril] 5 mg PO DAILY 01/11/19 [History] Loperamide HCl [Imodium A-D] 4 mg PO DAILY 01/11/19 [History] Metoprolol XL (24 HR) Succ [Toprol Xl] 50 mg PO DAILY 01/11/19 [History] Ondansetron HCl [Zofran] 4 mg PO Q8HR PRN 01/11/19 [History] Quetiapine Fumarate [SEROquel] 25 mg PO BID 01/11/19 [History] Warfarin Sodium 1 mg PO DAILY 01/11/19 [History] Allergy/AdvReac Type Severity Reaction Status Date / Time No Known Allergies Allergy Verified 10/14/18 10:17 All Systems Review: The remainder of the systems were reviewed and are negative - Cardiovascular Cardiovascular: as per HPI Physical Examination Vital Signs Temp Pulse Resp BP Pulse Ox 01/12/19 07:57 98.4 F 62 16 136/60 100 01/12/19 03:10 97.7 F 61 18 147/70 100 01/12/19 02:49 23 130/58 01/12/19 02:00 62 18 97/51 97 01/12/19 01:00 60 16 119/51 97 01/12/19 00:00 61 18 115/64 96 01/11/19 23:44 67 25 162/73 98 01/11/19 22:00 112 20 110/70 98 01/11/19 21:00 111 20 109/77 97 01/11/19 20:39 95 01/11/19 20:36 97.5 F L 113 27 145/131 94 General: Conversant, No Apparent Distress HEENT: Atraumatic, Normocephaly, Mucus Membranes Moist Neck: No JVD Cardiac: Reg Rate and Rhythm, Normal S1 and S2 Lungs: Normal Breath Sounds, No Wheeze, Rales, Rhonchi Neuro: Alert and responsive, No focal deficits noted Abdomen: Soft, Non-Tender Skin: No rashes noted on visualized skin Musculoskeletal: No Chest Wall Tenderness Extremities: No Clubbing, No Cyanosis, No Edema, Normal Pulses Results 01/12/19 04:17 01/12/19 04:17 Lab Results 01/11/19 01/11/19 01/11/19 20:43 20:43 20:43 WBC 7.7 Hgb 10.1 L Hct 31.9 L Plt Count 175 INR 2.9 Sodium 139 Potassium 4.0 Chloride 105 Carbon Dioxide 25 BUN 20 Creatinine 1.63 H Glucose 129 H Calcium 8.9 Magnesium 2.1 Troponin I 0.06 H* B-Natriuretic Peptide TSH 3.790 01/11/19 01/12/19 01/12/19 22:05 04:17 04:17 WBC 7.6 Hgb 9.5 L Hct 30.6 L Plt Count 157 INR Sodium Potassium Chloride Carbon Dioxide BUN Creatinine Glucose Calcium Magnesium Troponin I 0.18 H* B-Natriuretic Peptide 2060 H TSH 01/12/19 01/12/19 01/12/19 04:17 04:17 04:17 WBC Hgb Hct Plt Count INR 2.9 Sodium 139 Potassium 3.9 Chloride 104 Carbon Dioxide 26 BUN 19 Creatinine 1.66 H Glucose 113 H Calcium 9.0 Magnesium 1.9 Troponin I B-Natriuretic Peptide 1475 H TSH 3.490 01/12/19 08:20 WBC Hgb Hct Plt Count INR Sodium Potassium Chloride Carbon Dioxide BUN Creatinine Glucose Calcium Magnesium Troponin I 0.18 H* B-Natriuretic Peptide TSH - Imaging and Cardiology Other Results: tele reviewed: NSR, average HR 60 - EKG Interpretation EKG results cardiology: personally reviewed, sinus rhythm Consult Discharge Plan - Plan Referrals: NONE,PCP [Primary Care Provider] - < A - Last Filed: 01/12/19 19:57> Date of Encounter: 01/12/19 - Attending Attestation I have personally performed a face to face evaluation on this patient. I have reviewed and agree with the documented findings and care plan as documented by the DOCUMENTATION LEAD. History and Exam by me shows: 83-year-old male with history of cardiomyopathy s/p AICD, dementia admitted for AICD discharge. He reports anxiety regarding unexpected ICD shocks. Discussed extensively with his daughter, who is the POA. They would like to think and discuss with other family members about adjusting ICD settings to prevent deacvitate debrillation vs frequent shocks. Meanwhile recommend continuing amiodarone 200mg daily and increase Toprol to 75mg daily and EP consult Thanks for the consult, please call with questions. Yunior Weinberg MD [facility] Assessment and Plan Discussion w patient/family: The assessment and plan as outlined above was discussed with the patient and/or family members who expressed understanding and agreement. All questions were answered. Thank you for involving us in the care of your patient. Please call with any questions. History of Present Illness History of present illness: Mr. Vizcarra is a 83 year old male All Systems Review: The remainder of the systems were reviewed and are negative Physical Examination Vital Signs, Last 4 Hours Temp Pulse Resp BP Pulse Ox 01/12/19 16:36 97.9 F 59 18 122/53 99 Results 01/12/19 04:17 01/12/19 04:17 Lab Results 01/11/19 01/11/19 01/11/19 20:43 20:43 20:43 WBC 7.7 Hgb 10.1 L Hct 31.9 L Plt Count 175 INR 2.9 Sodium 139 Potassium 4.0 Chloride 105 Carbon Dioxide 25 BUN 20 Creatinine 1.63 H Glucose 129 H Calcium 8.9 Magnesium 2.1 Troponin I 0.06 H* B-Natriuretic Peptide TSH 3.790 01/11/19 01/12/19 01/12/19 22:05 04:17 04:17 WBC 7.6 Hgb 9.5 L Hct 30.6 L Plt Count 157 INR Sodium Potassium Chloride Carbon Dioxide BUN Creatinine Glucose Calcium Magnesium Troponin I 0.18 H* B-Natriuretic Peptide 2060 H TSH 01/12/19 01/12/19 01/12/19 04:17 04:17 04:17 WBC Hgb Hct Plt Count INR 2.9 Sodium 139 Potassium 3.9 Chloride 104 Carbon Dioxide 26 BUN 19 Creatinine 1.66 H Glucose 113 H Calcium 9.0 Magnesium 1.9 Troponin I B-Natriuretic Peptide 1475 H TSH 3.490 01/12/19 01/12/19 08:20 14:43 WBC Hgb Hct Plt Count INR Sodium Potassium Chloride Carbon Dioxide BUN Creatinine Glucose Calcium Magnesium Troponin I 0.18 H* 0.12 H* B-Natriuretic Peptide TSH
--- NOTE | 2019-01-12 12:55 | Electrophysiology Consult Note ---
<Andrew Pham R - Last Filed: 01/12/19 12:55> Date of Encounter: 01/12/19 Time of Encounter: 12:52 Assessment and Plan (1) AICD discharge Status: Acute TTE 11/2018 EF 25-30%. Known ICMP and ICD placement. Per interrogation, patient was shocked once on Friday and twice on Friday. Also shocked in our ED all for VT. K, Mag, TSH WNL. Troponin 0.06, 0.18, 0.18 in set ting of multiple ICD shock--suspect demand ischemia, nondiagnostic for ACS. Cardiac rehab not warranted. Was admitted last month and found to be in sustained slow VT for which he was started on Amiodarone 200mg. At that time, device settings were adjusted to only allow two shocks per event per family request. Increased Toprol XL to 75mg. Discussed and reviewed with Dr. Jose Zhang. Will increase Amiodarone to 400mg daily. Will discuss with family regarding current device settings and if they wa nt this changed to full therapies vs current settings. (2) Ventricular tachycardia Status: Acute See above for assessment and plan. (3) Atrial fibrillation Status: Chronic Currently paced. Continue BB. Anticoagulated on Coumadin, INR 2.9. Qualifiers: Atrial fibrillation type: chronic Qualified Code(s): - Discussion w patient/family: The assessment and plan as outlined above was discussed with the patient and/or family members who expressed understanding and agreement. All questions were answered. Thank you for involving us in the care of your patient. Please call with any questions. I will discuss all the above with Dr. Jose Zhang and make changes as necessary. History of Present Illness Consult date: 01/12/19 Requesting physician: Leatha Fontaine Consult reason: VT Chief complaint: ICD shock History of present illness: Mr. Vizcarra is a 83 year old male with PMH of Afib, HFrEF 25-30% s/p ICD, ICMP, CAD, dementia, HTN, CVA who initially presented to our ED from [facility] after patient was noted to be shocked by his ICD and presented to ED from [facility]. History is mostly obtained from daughter in law at bedside and daughter/POA on the phone. Reports patient has been doing well since admission last month. Per family, pt had ICD placed in 25 years ago and has not had any shocks since then except in the summer while taking a shower. Patient was admitted last month for acute on chronic hypoxic respiratory failure, CHF exacerbation and found to be in slow VT for which he was started on Amiodarone. Patient remains DNR/DNI verfied by daughter, Karissa that is the POA. Prior CV testing: TTE 11/19/18: LVEF 25-30%. Severe global and segmental LV systolic dysfunction. Mildly dilated left ventricle. Indeterminate diastolic function. Definity echo contrast was used. There is no LV thrombus. Normal right ventricular structure and function. Mild-moderate MR. Mild-moderate TR. Mild MT. Moderate phtn. A device lead was visualized in the right atrium and right ventricle. Past Med Surg Social Fam HX - Past Medical History Medical history: arthritis, atrial fibrillation, cardiomyopathy, CHF, coronary artery disease, CVA, dementia, GERD, hypertension, myocardial infarction Additional medical history: cerebral infarction. gastritis Psychiatric history: no psych history - Past Surgical History Surgical History: carotid endarterectomy, colectomy, herniorrhaphy, pacemaker/AICD - Social History Smoking Status: Current every day smoker Smokeless Tobacco Status: Yes Alcohol use: none Drug use: none - Family History Mother Adopted: No Family Member Ethnicity: Non- Living Status: Hx Family Cardiac Disorders: Yes Medications and Allergies Albuterol Sulfate [Ventolin Hfa] 1 - 2 puff IH Q4HR PRN 05/19/18 [History] Pantoprazole Sodium [Protonix] 20 mg PO 0800,1700 05/19/18 [History] Sertraline [Zoloft] 25 mg PO 0800 10/13/18 [History] Chlorpheniramine/Dextromethorp [Coricidin Hbp Cough-Cold Tab] 2 tab PO Q4H PRN MDD 4 TABS/24HR 10/14/18 [History] Magnesium Hydroxide [Milk of Magnesia] 2,400 mg PO DAILY PRN 10/14/18 [History] risperiDONE [RisperDAL] 0.25 mg PO 199911/19/18 [History] Furosemide [Lasix] 20 mg PO Q48H #30 11/26/18 [Rx] Loperamide HCl [Imodium A-D] 4 mg PO DAILY PRN MDD 16MG 01/11/19 [History] Ondansetron HCl [Zofran] 4 mg PO Q8HR PRN 01/11/19 [History] Quetiapine Fumarate [Seroquel] 25 mg PO 799,199901/11/19 [History] LORazepam Oral Conc [Ativan Oral Conc] 1 mg PO Q6HR 4 Days #4 mls 01/15/19 [Rx] Nicotine Patch [Nicoderm] 21 mg TD DAILY patch.td24 01/15/19 [Rx] OxyCODONE Oral CONC [Oxycodone Oral Conc] 10 mg PO Q4H PRN 7 Days #35 oral.syg 01/15/19 [Rx] Allergy/AdvReac Type Severity Reaction Status Date / Time No Known Allergies Allergy Verified 01/12/19 22:50 All Systems Review: The remainder of the systems were reviewed and are negative - Cardiovascular Cardiovascular: as per HPI Physical Examination Vital Signs, Last 4 Hours Temp Pulse Resp BP Pulse Ox 01/12/19 12:31 97.6 F 63 18 145/68 98 Vital Signs Temp Pulse Resp BP Pulse Ox 01/12/19 12:31 97.6 F 63 18 145/68 98 01/12/19 07:57 98.4 F 62 16 136/60 100 01/12/19 03:10 97.7 F 61 18 147/70 100 01/12/19 02:49 23 130/58 01/12/19 02:00 62 18 97/51 97 01/12/19 01:00 60 16 119/51 97 01/12/19 00:00 61 18 115/64 96 01/11/19 23:44 67 25 162/73 98 01/11/19 22:00 112 20 110/70 98 01/11/19 21:00 111 20 109/77 97 01/11/19 20:39 95 01/11/19 20:36 97.5 F L 113 27 145/131 94 Intake and Output 01/11/19 01/12/19 01/12/19 23:59 07:59 15:59 Intake Total 0 / 0 Output Total 300 / 700 400 / 700 Balance -300 / -700 -400 / -700 Intake: Oral 0 / 0 Output: Urine 300 / 700 400 / 700 Other: Weight 69.717 kg 63 kg 65.3 kg Patient Weight 01/12/19 23:59 Weight 65.3 kg General: Conversant, No Apparent Distress HEENT: Atraumatic, Normocephaly, Mucus Membranes Moist Neck: No JVD, Normal carotid pulses Cardiac: Reg Rate and Rhythm, Normal S1 and S2, No Murmur Lungs: Normal Breath Sounds, No Wheeze, Rales, Rhonchi Neuro: Alert and responsive, No focal deficits noted Abdomen: Soft, Non-Tender Skin: No rashes noted on visualized skin Musculoskeletal: No Chest Wall Tenderness Extremities: No Clubbing, No Cyanosis, No Edema, Normal Pulses Results 01/12/19 04:17 01/12/19 04:17 Lab Results 01/11/19 01/11/19 01/11/19 20:43 20:43 20:43 WBC 7.7 Hgb 10.1 L Hct 31.9 L Plt Count 175 INR 2.9 Sodium 139 Potassium 4.0 Chloride 105 Carbon Dioxide 25 BUN 20 Creatinine 1.63 H Glucose 129 H Calcium 8.9 Magnesium 2.1 Troponin I 0.06 H* B-Natriuretic Peptide TSH 3.790 01/11/19 01/12/19 01/12/19 22:05 04:17 04:17 WBC 7.6 Hgb 9.5 L Hct 30.6 L Plt Count 157 INR Sodium Potassium Chloride Carbon Dioxide BUN Creatinine Glucose Calcium Magnesium Troponin I 0.18 H* B-Natriuretic Peptide 2060 H TSH 01/12/19 01/12/19 01/12/19 04:17 04:17 04:17 WBC Hgb Hct Plt Count INR 2.9 Sodium 139 Potassium 3.9 Chloride 104 Carbon Dioxide 26 BUN 19 Creatinine 1.66 H Glucose 113 H Calcium 9.0 Magnesium 1.9 Troponin I B-Natriuretic Peptide 1475 H TSH 3.490 01/12/19 08:20 WBC Hgb Hct Plt Count INR Sodium Potassium Chloride Carbon Dioxide BUN Creatinine Glucose Calcium Magnesium Troponin I 0.18 H* B-Natriuretic Peptide TSH Short CBC 01/12/19 01/11/19 Range/Units 04:17 20:43 WBC 7.6 7.7 (4.3-11.1) K/mcL Hgb 9.5 L 10.1 L (12.9-16.9) g/dL Hct 30.6 L 31.9 L (37.5-50.1) % Plt Count 157 175 (140-400) K/mcL Neutrophils # 5.1 5.1 (1.6-8.9) K/mcL BMP 01/12/19 01/11/19 Range/Units 04:17 20:43 Sodium 139 139 (136-145) mEq/L Potassium 3.9 4.0 (3.5-5.1) mEq/L Chloride 104 105 (98-107) mEq/L Carbon Dioxide 26 25 (23-29) mEq/L BUN 19 20 (8-23) mg/dL Creatinine 1.66 H 1.63 H (0.70-1.30) mg/dL Glucose 113 H 129 H (70-105) mg/dL Calcium 9.0 8.9 (8.6-10.3) mg/dL Cardiac Enzymes 01/12/19 01/12/19 01/11/19 Range/Units 08:20 04:17 20:43 Troponin I 0.18 H* 0.18 H* 0.06 H* (< 0.04) ng/mL Impressions Chest X-Ray 01/11/19 21:36 IMPRESSION: Findings suggest congestive heart failure D/ / Tremayne Orozco MD / Tremayne Orozco MD Interpreting Provider: Tremayne Orozco MD Head CT 01/11/19 22:49 IMPRESSION: No acute intracranial abnormality. Diffuse atrophic changes with findings suggesting chronic microvascular ischemia D/ / Tremayne Orozco MD / Tremayne Orozco MD Interpreting Provider: Tremayne Orozco MD Cervical Spine CT 01/11/19 22:51 IMPRESSION: No acute abnormality of the cervical spine. D/ / Tremayne Orozco MD / Tremayne Orozco MD Interpreting Provider: Tremayne Orozco MD Active Medications Acetaminophen (Tylenol) 650 mg PO Q4HR PRN PRN Reason: Pain Stop: 07/14/19 01:52 Hydrocodone Bitart/Acetaminophen (Walker 5-325 Mg) 1 tab PO TID [facility] Stop: 07/14/19 02:01 Last Admin: 01/12/19 09:52 Dose: 1 tab Documented by: Albuterol/Ipratropium (Duoneb) 3 ml IH Q4H PRN PRN Reason: COUGH/CONGESTION Stop: 07/14/19 01:52 Amiodarone HCl (Cordarone) 200 mg PO DAILY [facility] Stop: 07/14/19 09:01 Last Admin: 01/12/19 08:24 Dose: 200 mg Documented by: Atorvastatin Calcium (Lipitor) 20 mg PO DAILY [facility] Stop: 07/14/19 09:01 Last Admin: 01/12/19 08:24 Dose: 20 mg Documented by: Clopidogrel Bisulfate (Plavix) 75 mg PO DAILY [facility] Stop: 07/14/19 09:01 Last Admin: 01/12/19 08:24 Dose: 75 mg Documented by: Donepezil HCl (Aricept) 10 mg PO HS [facility] Stop: 07/14/19 02:01 Last Admin: 01/12/19 04:05 Dose: 10 mg Documented by: Famotidine (Pepcid) 20 mg PO BIDAC [facility] Stop: 07/14/19 07:31 Last Admin: 01/12/19 08:24 Dose: 20 mg Documented by: Furosemide (Lasix) 40 mg IVP DAILY [facility] Stop: 07/14/19 09:01 Last Admin: 01/12/19 09:52 Dose: 40 mg Documented by: Lisinopril (Zestril) 5 mg PO DAILY [facility]; Protocol Stop: 07/14/19 09:01 Last Admin: 01/12/19 08:24 Dose: 5 mg Documented by: Loratadine (Claritin) 10 mg PO DAILY [facility] Stop: 07/14/19 09:01 Last Admin: 01/12/19 08:24 Dose: 10 mg Documented by: Metoprolol Succinate (Toprol Xl) 75 mg PO DAILY [facility] Stop: 07/15/19 09:01 Naloxone HCl (Narcan) 0.4 mg IVP Q2MPRN PRN PRN Reason: SEE COMMENTS Stop: 07/14/19 02:17 Nicotine (Nicoderm) 21 mg TD DAILY [facility] Stop: 07/14/19 09:01 Last Admin: 09/24/19 08:23 Dose: 21 mg Documented by: Nicotine Polacrilex (Nicorette Gum) 2 mg BC Q2H PRN PRN Reason: Nicotine Cravings Stop: 07/14/19 02:17 Omeprazole (Prilosec) 20 mg PO BIDAC [facility] Stop: 07/14/19 07:31 Last Admin: 01/12/19 08:24 Dose: 20 mg Documented by: Quetiapine Fumarate (Seroquel) 25 mg PO BID [facility]; Protocol Stop: 07/14/19 02:01 Last Admin: 01/12/19 08:25 Dose: Not Given Documented by: Risperidone (Risperdal) 0.25 mg PO HS [facility] Stop: 07/14/19 02:01 Last Admin: 01/12/19 04:05 Dose: 0.25 mg Documented by: Warfarin Sodium (Coumadin) 1 mg PO 1800 [facility]; Protocol Stop: 07/14/19 18:01 - Imaging and Cardiology Echo: report reviewed Consult Discharge Plan - Plan Referrals: NONE,PCP [Primary Care Provider] - Prescriptions: LORazepam Oral Conc [Ativan Oral Conc] 1 mg PO Q6HR 4 Days #4 mls Prescription Printed OxyCODONE Oral CONC [Oxycodone Oral Conc] 10 mg PO Q4H PRN 7 Days #35 oral.syg PRN Reason: Pain Prescription Printed <Jose Zhang - Last Filed: 01/21/19 14:16> Date of Encounter: 01/21/19 - Attending Attestation I have personally performed a face to face evaluation on this patient. I have reviewed and agree with the care plan. History and Exam by me shows: Recurrent VT. Successfull device shocks. Will reload amio. Assessment and Plan Discussion w patient/family: The assessment and plan as outlined above was discussed with the patient and/or family members who expressed understanding and agreement. All questions were answered. Thank you for involving us in the care of your patient. Please call with any questions. History of Present Illness History of present illness: Mr. Vizcarra is a 83 year old male All Systems Review: The remainder of the systems were reviewed and are negative Results 01/12/19 04:17 01/15/19 02:06 Cardiac Rehab - Cardiac Rehab Cardiac Rehab: Phase I consult completed. Patient was educated on why Cardiac Rehabilitation is beneficial to his/her health. Participating in a cardiac rehabilitation can improve the following: strengthen your heart, improve ejection fraction, weight reduction, decrease cholesterol levels, lower blood pressure, lower blood sugar, improve stamina, and enhance self-image. If he/she has any questions, they were instructed to call [facility] at [phone].
[2019-01-12] MEDS ORDERED: *HR* Amiodarone 200 MG TABLET PO ONE (13:02)
--- NOTE | 2019-01-12 14:17 | Palliative - Consult Note ---
Date of Encounter: 01/12/19 Time of Encounter: 14:00 - Assessment and Plan (1) Chronic low back pain Current Visit: No Status: Acute Assessment and plan: Continue Costilla as per home dose. Utilized x2 last 24 hours. Patient states has provided him relief. Monitor. Qualifiers: Back pain laterality: unspecified Sciatica presence: without sciatica Qualified Code(s): M54.5 - Low back pain; G89.29 - Other chronic pain (2) Advanced care planning/counseling discussion Current Visit: Yes Status: Acute Assessment and plan: Discussed with patient and daughter Karissa Boyd at bedside. She stated that she was POA, however, upon review of her documents, this was only a durable POA that did not cover medical decisions. D/W patient and Karissa. He did desire to complete a Healthcare POA and named daughter Karissa as primary, and son Efren as alternate. Copies were made and provided to family as well as placed in medical record. We had long discussion regarding his goals and his experience with the AICD firing. Patient understands that turning off this function, he could pass away from a lethal arrhythmia. He states that he desires to spend more time with his at the facility, and does not feel ready to do this as of yet, but he and daughter were appreciative of information. Discussed also that if his condition declines, and they desire to have tachy therapies discontinued, this could be performed and involving hospice care at this time would be appropriate. They verbalized understanding. I spent 30 min total time with patient, family member(s) and/or surrogate discussing advance care planning to include explanation/discussion of advanced directives. Please note this time was additional time spent with patient, family and/or surrogate not involving active management of patient's conditions or treatments. (3) Cerebrovascular disease Current Visit: No Status: Chronic (4) Defibrillator discharge Current Visit: No Status: Resolved Assessment and plan: Amiodarone has been increased per cardiology. Monitor (5) Ischemic cardiomyopathy Current Visit: No Status: Chronic (6) Heart failure with reduced ejection fraction Current Visit: No Status: Chronic Assessment and plan: Cardiology following. Qualifiers: Heart failure chronicity: acute on chronic Qualified Code(s): I50.23 - Acute on chronic systolic (congestive) heart failure (7) Palliative care encounter Current Visit: No Status: Acute Palliative-CN HPI - Data of Consult Requesting Physician: Saul Peng DO Primary Care Provider: PCP NONE - Consult Narrative History of present illness: Mr. Vizcarra is a 83 year old male known to our Palliative care team who was admitte d after he was ambulating to the bathroom and was shocked by his AICD. He has history of atrial fibrillation, CHF, AICD placement, CAD, HTN, CVA, dementia. He resides at [facility] with his . Daughter Karissa is at bedside, and states that she has seen a decline in his condition, and he has had 3 admissions for discharge of his AICD. This was placed approx 25 yrs ago and had not discharged until the last couple of months. Prior CV testing demonstrated:LVEF 25-30%. Severe global and segmental LV systolic dysfunction. Mildly dilated left ventricle. Indeterminate diastolic function. Normal right ventricular structure and function. Mild-moderate MR. Mild-moderate TR. Patient is awake and alert. Oriented x 2. Does remember getting shocked yesterday, but cannot recall many of yesterdays events. Answers questions appropriately. His code status is currently DNR/DNI and this was established by Dr. Perez during his November admission. CC: Saul Peng DO - Time Spent with Patient Time: Total time spent is greater than 50% in coordination of care (as documented) at patient's floor/unit and/or counseling patient: 40min Past Med Surg Social Fam HX - Past Medical History Medical history: arthritis, atrial fibrillation, cardiomyopathy, CHF, coronary artery disease, CVA, dementia, GERD, hypertension, myocardial infarction Additional medical history: cerebral infarction. gastritis Psychiatric history: no psych history - Past Surgical History Surgical History: carotid endarterectomy, colectomy, herniorrhaphy, pacemaker/AICD - Social History Smoking Status: Current every day smoker Smokeless Tobacco Status: Yes Alcohol use: none Drug use: none - Family History Mother Adopted: No Family Member Ethnicity: Non- Living Status: Hx Family Cardiac Disorders: Yes Medications and Allergies Atorvastatin Calcium [Lipitor] 20 mg PO DAILY 03/14/16 [History] Clopidogrel [Plavix] 75 mg PO DAILY 03/14/16 [History] Albuterol Sulfate [Ventolin Hfa] 1 - 2 puff IH Q4HR PRN 05/19/18 [History] Cetirizine HCl 5 mg PO DAILY 05/19/18 [History] Donepezil [Aricept] 10 mg PO HS 05/19/18 [History] Pantoprazole Sodium [Protonix] 20 mg PO BID 05/19/18 [History] Sennosides [Senna] 8.6 mg PO BID 05/19/18 [History] Ranitidine HCl [Heartburn Relief] 75 mg PO BID 10/13/18 [History] Sertraline [Zoloft] 25 mg PO DAILY 10/13/18 [History] Chlorpheniramine/Dextromethorp [Coricidin Hbp Cough-Cold Tab] 2 tab PO Q4H PRN MDD 4 TABS/24HR 10/14/18 [History] Ipratropium/Albuterol Sulfate [Iprat-Albut 0.5-3(2.5) mg/3 ml] 3 ml IH Q4H PRN 10/14/18 [History] Magnesium Hydroxide [Milk of Magnesia] 2,400 mg PO DAILY PRN 10/14/18 [History] Polyethylene Glycol 3350 [MiraLax bowel prep] 17 gm PO QAM 10/14/18 [History] Acetaminophen [Tylenol] 650 mg PO Q4HR PRN 11/19/18 [History] Oxybutynin Chloride [Ditropan XL] 5 mg PO DAILY 11/19/18 [History] risperiDONE [RisperDAL] 0.25 mg PO HS 11/19/18 [History] Amiodarone HCl 200 mg PO DAILY #0 11/26/18 [Rx] Furosemide [Lasix] 20 mg PO Q48H #30 11/26/18 [Rx] HYDROcodone/Acet 5/325 mg [Costilla 5-325 mg] 1 tab PO TID 1 Days #3 tablet 11/26/18 [Rx] Lisinopril [Zestril] 5 mg PO DAILY 01/11/19 [History] Loperamide HCl [Imodium A-D] 4 mg PO DAILY 01/11/19 [History] Metoprolol XL (24 HR) Succ [Toprol Xl] 50 mg PO DAILY 01/11/19 [History] Ondansetron HCl [Zofran] 4 mg PO Q8HR PRN 01/11/19 [History] Quetiapine Fumarate [SEROquel] 25 mg PO BID 01/11/19 [History] Warfarin Sodium 1 mg PO DAILY 01/11/19 [History] Allergy/AdvReac Type Severity Reaction Status Date / Time No Known Allergies Allergy Verified 10/14/18 10:17 - Constitutional Constitutional ROS PAL: fatigue - EENT Eyes: as per HPI - Cardiovascular Cardiovascular ROS: irregular heart rhythm - Respiratory Respiratory: as per HPI - Gastrointestinal Gastrointestinal: as per HPI - Genitourinary Genitourinary ROS male: urinary frequency - Musculoskeletal Additional comments: Bruised elbow from fall - Integumentary ROS Integumentary: as per HPI - Neurological Neurological ROS: weakness Palliative Care-Exam - Constitutional Vitals: Temp Pulse Resp BP Pulse Ox 97.6 F 63 18 145/68 98 01/12/19 12:31 01/12/19 12:31 01/12/19 12:31 01/12/19 12:31 01/12/19 12:31 Internal Medicine - CN: Reslt - Labs CBC & Chem 7: 01/12/19 04:17 01/12/19 04:17 Labs: Short CBC 01/11/19 01/12/19 Range/Units 20:43 04:17 WBC 7.7 7.6 (4.3-11.1) K/mcL Hgb 10.1 L 9.5 L (12.9-16.9) g/dL Hct 31.9 L 30.6 L (37.5-50.1) % Plt Count 175 157 (140-400) K/mcL Neutrophils # 5.1 5.1 (1.6-8.9) K/mcL BMP 01/11/19 01/12/19 20:43 04:17 Sodium 139 139 Potassium 4.0 3.9 Chloride 105 104 Carbon Dioxide 25 26 BUN 20 19 Creatinine 1.63 H 1.66 H Glucose 129 H 113 H Calcium 8.9 9.0 Cardiac Enzymes 01/11/19 01/12/19 01/12/19 Range/Units 20:43 04:17 08:20 Troponin I 0.06 H* 0.18 H* 0.18 H* (< 0.04) ng/mL - ABG Interpretation ABG results: PT/INR, D-dimer PT 33.1 Seconds (9.4-12.1) H 01/12/19 04:17 - Impressions Impressions Chest X-Ray 01/11/19 21:36 IMPRESSION: Findings suggest congestive heart failure D/ / Tremayne Orozco MD / Tremayne Orozco MD Interpreting Provider: Tremayne Orozco MD Head CT 01/11/19 22:49 IMPRESSION: No acute intracranial abnormality. Diffuse atrophic changes with findings suggesting chronic microvascular ischemia D/ / Tremayne Orozco MD / Tremayne Orozco MD Interpreting Provider: Tremayne Orozco MD Cervical Spine CT 01/11/19 22:51 IMPRESSION: No acute abnormality of the cervical spine. D/ / Tremayne Orozco MD / Tremayne Orozco MD Interpreting Provider: Tremayne Orozco MD Consult Discharge Plan - Plan Referrals: NONE,PCP [Primary Care Provider] - Palliative Quality Palliative Quality: Screen for Code Status: Yes, Screen for Goals of Care: Yes, Screen for Pain: Yes, If Pain Regimen Started, Initiate Bowel Regimen: NA, Screen for Nausea/Vomitting: Yes Code Status: 01/12/19 02:16 Resuscitation Status: Active [RES] Routine Comment: Resuscitation Status: [id number] Palliative Scale - Palliative Performance Scale How ambulatory is this patient?: Mainly sit / lie What is patient's level of activity and evidence of disease?: Unable normal job/work, Significant disease How much self-care assistance does patient require?: Considerable assistance required How much oral intake does the patient have?: Normal or reduced What is this patient's level of consciousness?: Full or confusion Palliative Performance Score: 60 %
--- NOTE | 2019-01-12 15:16 | Event Note ---
Date of Encounter: 01/12/19 Time of Encounter: 15:15 I have seen and evaluated the patient at bedside. H&P, vital signs, labs and consult note reviewed. patient hemodynamically stable, will continue to follow.
[2019-01-12] MEDS ORDERED: Perflutren Lipid Microsphere 1.3 ML in 0.9 % Sodium Chloride 8.7 ML IVP ONE (16:11)
--- NOTE | 2019-01-12 16:18 | Electrocardiograph Report ---
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
[2019-01-12] MEDS: *HR* Warfarin 1 MG TABLET PO SCH (17:37)
[2019-01-12] MEDS ORDERED: Acetaminophen 325 MG TABLET PO ONE (20:32)
[2019-01-13] MEDS: Nicotine 21 MG PATCH.TD24 TD SCH (07:32)
[2019-01-13] MEDS: Furosemide 40 MG/4 ML VIAL IVP SCH (07:32)
[2019-01-13] MEDS: Famotidine 20 MG TABLET PO SCH (07:33)
[2019-01-13] MEDS: Metoprolol XL (24 HR) Succ 50 MG TAB.ER.24H PO SCH (07:33)
[2019-01-13] MEDS: Loratadine 10 MG TABLET PO SCH (07:33)
[2019-01-13] MEDS: *HR* Amiodarone 200 MG TABLET PO SCH (07:33)
[2019-01-13 09:00] LABS: Calcium 9.5 mg/dL (8.6-10.3); Magnesium 2.1 mg/dL (1.6-2.6); Potassium 3.8 mEq/L (3.5-5.1)
[2019-01-13] MEDS: *HR* HYDROcodone/Acet 5/325 mg TABLET PO SCH ×3 (09:12→20:28)
[2019-01-13] MEDS ORDERED: Ondansetron 4 MG/2 ML VIAL IVP PRN (09:19)
--- NOTE | 2019-01-13 10:37 | Event Note ---
Date of Encounter: 01/13/19 Time of Encounter: 09:45 Patient awake and alert. No further shocks from AICD. Cardiology present during my visit and discussed plan. Patient tentative for D/C tomorrow. I asked patient and daughter NORMA Hancock at bedside if they had any further issues or concerns to discuss and they did not. Palliative currently not managing any symptoms and will sign off. Please call if needed.
--- NOTE | 2019-01-13 10:52 | Cardiology Progress Note ---
<Leatha Fontaine - Last Filed: 01/13/19 10:48> Date of Encounter: 01/13/19 Time of Encounter: 10:00 Assessment and Plan (1) AICD discharge Current Visit: Yes Status: Acute TTE 11/2018 EF 25-30%. Known ICMP and ICD placement. Per interrogation, patient was shocked once on Friday and twice on Friday. Also shocked in our ED all for VT. K, Mag, TSH WNL. Troponin 0.06, 0.18, 0.18 in setting of multiple ICD shock--suspect demand ischemia, nondiagnostic for ACS. Cardiac rehab not warranted. Was admitted last month and found to be in sustained slow VT for which he was started on Amiodarone 200mg. At that time, device settings were adjusted to only allow two shocks per event per family request. No events noted over night on tele. Will continue increased BB and Amiodarone dosing as well as current ICD settings. I will schedule follow-up as outpatient and cardiology will sign off at this time, please re-consult as needed. (2) Ventricular tachycardia Current Visit: Yes Status: Acute See above for assessment and plan. Discussion w patient/family: The assessment and plan as outlined above was discussed with the patient and/or family members who expressed understanding and agreement. All questions were answered. Thank you for involving us in the care of your patient. Please call with any questions. The above assessment and plan will be discussed with Dr. Weinberg and I will make changes as necessary. Subjective Principal diagnosis: VT requiring ICD shocks Interval history: Doing well this morning other than feeling nauseous. Objective Vital Signs, Last 4 Hours Temp Pulse Resp BP Pulse Ox 01/13/19 07:49 97.6 F 59 16 141/65 98 General: Conversant, No Apparent Distress HEENT: Atraumatic, Normocephaly, Mucus Membranes Moist Neck: No JVD, Normal carotid pulses Cardiac: Reg Rate and Rhythm, Normal S1 and S2, No Murmur Lungs: Normal Breath Sounds, No Wheeze, Rales, Rhonchi Neuro: Alert and responsive, No focal deficits noted Abdomen: Soft, Non-Tender Skin: No rashes noted on visualized skin Musculoskeletal: No Chest Wall Tenderness Extremities: No Clubbing, No Cyanosis, No Edema, Normal Pulses Results 01/12/19 04:17 01/13/19 08:20 Lab Results 01/12/19 01/13/19 14:43 08:20 Sodium 137 Potassium 3.8 Chloride 99 Carbon Dioxide 27 BUN 28 H Creatinine 2.06 H Glucose 123 H Calcium 9.5 Magnesium 2.1 Troponin I 0.12 H* - Imaging and Cardiology Other Results: 12hr tele reviewed: average HR 61, no events noted. - VTE Reasons for not Prescribing Prophylaxis: Not indicated-Anticoagulated or INR therapeutic Consult Discharge Plan - Plan Referrals: NONE,PCP [Primary Care Provider] - <MickeysumiYunior A - Last Filed: 01/13/19 21:14> Date of Encounter: 01/13/19 Assessment and Plan Discussion w patient/family: The assessment and plan as outlined above was discussed with the patient and/or family members who expressed understanding and agreement. All questions were answered. Thank you for involving us in the care of your patient. Please call with any questions. Objective Vital Signs, Last 4 Hours Temp Pulse Resp BP Pulse Ox 01/13/19 21:08 110 81/62 01/13/19 20:45 108 101/57 01/13/19 20:36 96 01/13/19 20:32 96 01/13/19 20:30 106 80/55 01/13/19 20:18 106 81/60 01/13/19 20:00 110 79/63 01/13/19 19:01 105 16 87/57 97 01/13/19 18:56 106 16 103/57 98 01/13/19 18:45 105 16 86/58 01/13/19 18:42 98.2 F 109 18 84/60 98 01/13/19 18:38 107 18 84/60 97 01/13/19 18:32 112 16 97/58 98 Results 01/12/19 04:17 01/13/19 08:20 Lab Results 01/13/19 08:20 Sodium 137 Potassium 3.8 Chloride 99 Carbon Dioxide 27 BUN 28 H Creatinine 2.06 H Glucose 123 H Calcium 9.5 Magnesium 2.1 - Attending Attestation I have personally performed a face to face evaluation on this patient. I have reviewed and agree with the documented findings and care plan as documented by the GRANITE POLISHER APPRENTICE. History and Exam by me shows: 83-year-old male with history of cardiomyopathy s/p AICD, dementia admitted for AICD discharge. He has not experienced any more shocks since admission. Recommend continuing amiodarone 400mg daily and Toprol to 75mg daily Thanks for the consult, please call with questions. Yunior Weinberg MD [facility]
[2019-01-13] MEDS ORDERED: Ondansetron 4 MG/2 ML VIAL IVP SCH (12:00)
[2019-01-13] MEDS ORDERED: *HR* Metoprolol 5 MG/5 ML VIAL IVP ONE ×2 (13:40→13:41)
[2019-01-13] MEDS ORDERED: *HR* Metoprolol 5 MG/5 ML VIAL IVP PRN (14:11)
[2019-01-13] MEDS ORDERED: Ringers Solution, Lactated 500 ML IVC ONE (16:12)
[2019-01-13] MEDS ORDERED: 0.9 % Sodium Chloride 500 ML ONE (16:14)
[2019-01-13] MEDS ORDERED: 0.9 % Sodium Chloride 500 ML IVC ONE (16:26)
[2019-01-13] MEDS ORDERED: Amiodarone Premix 150 MG/100 ML BAG IVPB ONE (17:28)
[2019-01-13] MEDS: *HR* Warfarin 1 MG TABLET PO SCH (17:33)
--- NOTE | 2019-01-13 19:45 | Internal Med Progress Note ---
Hospitalist Progress Note - Encounter Date of Encounter: 01/13/19 Time of Encounter: 19:43 - Subjective Interval History: Condition did well this morning. Denied chest pain or shortness of breath. No shock from ICD since yesterday afternoon. Patient flipped into atrial fibrillation with RVR this evening with low-nl BP necessitating transfer to - Exam Vitals: Temp Pulse Resp BP Pulse Ox 98.2 F 105 16 87/57 97 01/13/19 18:42 01/13/19 19:01 01/13/19 19:01 01/13/19 19:01 01/13/19 19:01 Exam: General: Ill-appearing and in no acute distress HEENT: No erythema of posterior pharynx. No exudates. Lymphatics: No mandibular or cervical lymphadenopathy Cardiovascular: RRR. No murmurs. No chest wall tenderness. Lungs: Clear to auscelltation bilaterally. Regular chest rise. Abdomen: Non-tender. No rebound or gaurding. Nl bowel sounds. Extremities: No edema. 2+ pulses radial and pedal pulses Skin: No rahses, abrasions, or contusions. Nl cap refill. Psych: Nl attention. A&Ox3 Neuro: fire and safety helper II-XII intact. 5/5 strength. Sensation to light touch and pinprick intact. - Assessment and Plan (1) Atrial fibrillation with RVR Current Visit: Yes Status: Acute (2) AICD discharge Current Visit: Yes Status: Acute (3) Acute exacerbation of CHF (congestive heart failure) Current Visit: Yes Status: Acute (4) Advanced care planning/counseling discussion Current Visit: Yes Status: Acute (5) Ventricular tachycardia Current Visit: Yes Status: Acute (6) Acute and chronic respiratory failure with hypoxia Current Visit: No Status: Acute (7) Heart failure with reduced ejection fraction Current Visit: No Status: Chronic (8) Acute renal failure superimposed on stage 4 chronic kidney disease Current Visit: Yes Status: Acute - Summary of Assessment and Plan Summary of Assessment and Plan: Symptomatic Tachyarrythmia Ventricular Tachycardia with ICD Discharges Atrial Fibrillation with RVR Goals of Care Patient with history of HFrEF EF of 25-30%, CKD Stage III, and ICD with previous runs of vtach presented with repeat discharges from ICD and found to have multiple runs of ventricular tachycardia. -Cardiology consulted and vtach has since stabilized with increasing metoprolol and amiodarone dosing -However, patient now in atrial fibrillation with RVR Although rates are not severely elevated (low 100s) patient symptomatic and blood pressure low normal (80-90 SBP) Discussed cardiology. Recommended amiodarone bolus. If no response, amiodarone drip with consideration of digoxin load Poor prognosis regardless PLAN: - Amiodarone bolus with consideration of drip if no response - Consider digoxin load overnight if no response amiodarone - Continue Toprol - K >4 and Mg >2 - Continue goals of care discussions - Cardiology following, appreciate recommendations Acute on Chronic Systolic Heart Failure An acute exacerbation on admission with elevated BNP and aggressively diuresed. Creatinine bumped today so we will hold off on further diuresis. - Hold Lasix CELE on CKD Stage III Baseline Cr of 1.6, 2.06 today likely secondary to diuresis in setting of heart failure. - Hold Lasix Internal Medicine: Result - Labs CBC & Chem 7: 01/12/19 04:17 01/13/19 08:20 Labs: BMP 01/13/19 08:20 Sodium 137 Potassium 3.8 Chloride 99 Carbon Dioxide 27 BUN 28 H Creatinine 2.06 H Glucose 123 H Calcium 9.5 - ABG Interpretation ABG results: PT/INR, D-dimer PT 33.1 Seconds (9.4-12.1) H 01/12/19 04:17 - Impressions Impressions Echocardiogram Limited Views 01/12/19 17:14 Impressions: LVEF 20-25%. Mildly dilated left ventricle. Severe global left ventricular systolic dysfunction with regional variations. Atypical septal motion consistent with paced rhythm. Left Ventricular Wall Motion: Rest Echo Findings The apex, apical inferior, mid inferior, basal inferior, apical anterior, mid anterior, basal anterior, apical septal, mid inferior septal, basal inferior septal, apical lateral, mid anterior lateral, basal anterior lateral, mid anterior septal, mid inferior lateral, basal anterior septal and basal inferior lateral ann were hypokinetic. Findings: Study Quality * Technically sub-optimal due to poor echocardiographic windows. ECG Findings * Paced rhythm. Left Ventricle * LVEF 20-25%. * Mildly dilated left ventricle. * Severe global left ventricular systolic dysfunction with regional variations. * Atypical septal motion consistent with paced rhythm. Device lead * A device lead was visualized in the right atrium and right ventricle. - VTE Reasons for not Prescribing Prophylaxis: Not indicated-Anticoagulated or INR therapeutic Consult Discharge Plan - Plan Referrals: NONE,PCP [Primary Care Provider] - (3) Acute exacerbation of CHF (congestive heart failure) Qualifiers: Heart failure type: unspecified Qualified Code(s): I50.9 - Heart failure, unspecified (7) Heart failure with reduced ejection fraction Qualifiers: Heart failure chronicity: acute on chronic Qualified Code(s): I50.23 - Acute on chronic systolic (congestive) heart failure
[2019-01-13] MEDS: risperiDONE 0.25 MG TABLET PO SCH (20:29)
[2019-01-13] MEDS ORDERED: 0.9 % Sodium Chloride 250 ML IVC ONE (21:41)
[2019-01-14] MEDS ORDERED: Melatonin 3 MG TABLET PO PRN (00:30)
[2019-01-14] MEDS: Loratadine 10 MG TABLET PO SCH (08:14)
[2019-01-14] MEDS: Famotidine 20 MG TABLET PO SCH (08:14)
[2019-01-14] MEDS: Nicotine 21 MG PATCH.TD24 TD SCH (08:45)
[2019-01-14] MEDS: *HR* Amiodarone 200 MG TABLET PO SCH (08:47)
[2019-01-14 08:48] LABS: Calcium 8.7 mg/dL (8.6-10.3); Magnesium 2.1 mg/dL (1.6-2.6); Potassium 3.8 mEq/L (3.5-5.1)
[2019-01-14] MEDS: *HR* HYDROcodone/Acet 5/325 mg TABLET PO SCH ×3 (08:48→20:07)
[2019-01-14] MEDS: Metoprolol XL (24 HR) Succ 50 MG TAB.ER.24H PO SCH (08:51)
--- NOTE | 2019-01-14 09:47 | Internal Med Progress Note ---
Hospitalist Progress Note - Encounter Date of Encounter: 01/14/19 Time of Encounter: 09:42 - Subjective Interval History: Atrial fibrillation with RVR last night with low blood pressure. Initially responded to IV amiodarone bolus with conversion to sinus rhythm but now back in atrial fibrillation. [id number] notes the patient is more confused this morning. Patient has no complaints. - Exam Vitals: Temp Pulse Resp BP Pulse Ox 97.7 F 100 18 81/57 100 01/14/19 07:49 01/14/19 07:49 01/14/19 07:49 01/14/19 07:49 01/14/19 07:49 Exam: General: Ill-appearing and in no acute distress HEENT: No erythema of posterior pharynx. No exudates. Lymphatics: No mandibular or cervical lymphadenopathy Cardiovascular: Tachycardic and irregular. No murmurs. No chest wall tenderness. Lungs: Clear to auscelltation bilaterally. Regular chest rise. Abdomen: Non-tender. No rebound or gaurding. Nl bowel sounds. Extremities: No edema. 2+ pulses radial and pedal pulses Skin: No rahses, abrasions, or contusions. Nl cap refill. Psych: Nl attention. A&Ox3 Neuro: staff midwife II-XII intact. 5/5 strength. Sensation to light touch and pinprick intact. - Assessment and Plan (1) Atrial fibrillation with RVR Current Visit: Yes Status: Acute (2) AICD discharge Current Visit: Yes Status: Acute (3) Acute exacerbation of CHF (congestive heart failure) Current Visit: Yes Status: Acute (4) Advanced care planning/counseling discussion Current Visit: Yes Status: Acute (5) Ventricular tachycardia Current Visit: Yes Status: Acute (6) Acute and chronic respiratory failure with hypoxia Current Visit: No Status: Acute (7) Heart failure with reduced ejection fraction Current Visit: No Status: Chronic (8) Acute renal failure superimposed on stage 4 chronic kidney disease Current Visit: Yes Status: Acute - Summary of Assessment and Plan Summary of Assessment and Plan: Symptomatic Tachyarrythmia Ventricular Tachycardia with ICD Discharges Atrial Fibrillation with RVR Goals of Care Patient with history of HFrEF EF of 25-30%, CKD Stage III, and ICD with previous runs of vtach presented with repeat discharges from ICD and found to have multiple runs of ventricular tachycardia. -Cardiology consulted and vtach has since stabilized with increasing metoprolol and amiodarone dosing -However, patient now in atrial fibrillation with RVR Although rates are not severely elevated (low 100s) patient symptomatic and blood pressure low normal (80-90 SBP) Initially responded to amiodarone bolus but currently HR low 100's and SBP 60-90's Discussed cardiology. Recommended fluid boluses prn to support BP. Poor prognosis regardless PLAN: - IVF to keep SBP >80 - K >4 and Mg >2 - We will follow up cardiology recommendations after they see patient today If no further options for patient, will meet with family to discuss hospice Acute on Chronic Systolic Heart Failure An acute exacerbation on admission with elevated BNP and aggressively diuresed. Creatinine bumped today despite Lasix being held yesterday. Need to hold Lasix today in setting of hypotension. - Hold Lasix CELE on CKD Stage III Baseline Cr of 1.6, 2.06 today likely secondary to diuresis in setting of heart failure. - Hold Lasix Internal Medicine: Result - Labs CBC & Chem 7: 01/12/19 04:17 01/14/19 08:01 Labs: BMP 01/14/19 08:01 Sodium 138 Potassium 3.8 Chloride 103 Carbon Dioxide 26 BUN 38 H Creatinine 2.62 H Glucose 122 H Calcium 8.7 - ABG Interpretation ABG results: PT/INR, D-dimer PT 33.1 Seconds (9.4-12.1) H 01/12/19 04:17 - Impressions Impressions Echocardiogram Limited Views 01/12/19 17:14 Impressions: LVEF 20-25%. Mildly dilated left ventricle. Severe global left ventricular systolic dysfunction with regional variations. Atypical septal motion consistent with paced rhythm. Left Ventricular Wall Motion: Rest Echo Findings The apex, apical inferior, mid inferior, basal inferior, apical anterior, mid anterior, basal anterior, apical septal, mid inferior septal, basal inferior septal, apical lateral, mid anterior lateral, basal anterior lateral, mid anterior septal, mid inferior lateral, basal anterior septal and basal inferior lateral ann were hypokinetic. Findings: Study Quality * Technically sub-optimal due to poor echocardiographic windows. ECG Findings * Paced rhythm. Left Ventricle * LVEF 20-25%. * Mildly dilated left ventricle. * Severe global left ventricular systolic dysfunction with regional variations. * Atypical septal motion consistent with paced rhythm. Device lead * A device lead was visualized in the right atrium and right ventricle. - VTE Reasons for not Prescribing Prophylaxis: Not indicated-Anticoagulated or INR therapeutic Consult Discharge Plan - Plan Referrals: NONE,PCP [Primary Care Provider] - ___ (3) Acute exacerbation of CHF (congestive heart failure) Qualifiers: Heart failure type: unspecified Qualified Code(s): I50.9 - Heart failure, unspecified (7) Heart failure with reduced ejection fraction Qualifiers: Heart failure chronicity: acute on chronic Qualified Code(s): I50.23 - Acute on chronic systolic (congestive) heart failure
--- NOTE | 2019-01-14 12:34 | Electrocardiograph Report ---
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
--- NOTE | 2019-01-14 12:48 | Event Note ---
Date of Encounter: 01/14/19 Time of Encounter: 12:45 - Cardiology Event Note Re-consulted due to PAF RVR yesterday. Tele reviewed, patient is now paced in 60s. Continue Amiodarone 400mg and Toprol XL 75mg. Patient has follow-up with Dr. Jose Zhang in 2 weeks and Wellington Guzmán CNP in 3 months. Cardiology will sign off at this time, please re-consult PRN.
--- NOTE | 2019-01-14 16:46 | Palliative Progress Note ---
Date of Encounter: 01/14/19 Time of Encounter: 16:00 - Assessment and plan (1) Dyspnea Current Visit: Yes Status: Acute Assessment and plan: Will add SL Oxycodone if needed for dyspnea or more severe pain. MOnitor (2) Chronic low back pain Current Visit: No Status: Acute Qualifiers: Back pain laterality: unspecified Sciatica presence: without sciatica Qualified Code(s): M54.5 - Low back pain; G89.29 - Other chronic pain (3) Advanced care planning/counseling discussion Current Visit: Yes Status: Acute Assessment and plan: 30 min discussion with daughter Elton GREEN at bedside. She states that after discussing with Dr. Rendon and watching his decline since yesterday af ternoon, they are reconsidering his course of care and the AICD. However, 2 children remain in [place] and they are trying to arrange transporation home. Discussed process of turning off tachy therapies. Originally, they desired to wait until Friday until family could arrive. Discussed that we would have to have large magnet taped in place over device until Friday when library cataloging technician would be back, and also, would it be the best idea to have him be put through the discomfort of shocks for family to be present. They verbalized understanding. At the end of conversation, Elton would like AICD to be turned off tomorrow afternoon and transition to comfort care. The goal would be to hopefully get him back to ECF with hospice so he can spend time with his . D/W Dr. Perez and notified Dr. Rendon. Dr. Perez will f/u in am. (4) Cerebrovascular disease Current Visit: No Status: Chronic (5) Defibrillator discharge Current Visit: No Status: Resolved (6) Ischemic cardiomyopathy Current Visit: No Status: Chronic (7) Heart failure with reduced ejection fraction Current Visit: No Status: Chronic Qualifiers: Heart failure chronicity: acute on chronic Qualified Code(s): I50.23 - Acute on chronic systolic (congestive) heart failure (8) Palliative care encounter Current Visit: No Status: Acute (9) Dyspnea Current Visit: Yes Status: Acute - Time Spent With Patient Total time spent is greater than 50% in coordination of care (as documented) at patient's floor/unit and/or counseling patient: - Subjective Interval history: Asked to revisit patient today. He developed hypotension and afib/rvr. Transferred to . Renal function decreased - diuretics had to be stopped and has only urinated once a small bit today. Daughter Elton, , daughter n law and granddaughter present in room and tearful. - Constitutional Vitals: Abnormal lab results RBC 3.36 M/mcL (4.19-5.50) L 01/12/19 04:17 Hgb 9.5 g/dL (12.9-16.9) L 01/12/19 04:17 Hct 30.6 % (37.5-50.1) L 01/12/19 04:17 MCHC 31.0 g/dL (31.6-35.5) L 01/12/19 04:17 RDW 15.4 % (11.5-14.5) H 01/12/19 04:17 Retic Hgb Equivalent 28.2 pg (28.61-36.33) L 01/12/19 04:17 PT 33.1 Seconds (9.4-12.1) H 01/12/19 04:17 BUN 38 mg/dL (8-23) H 01/14/19 08:01 Creatinine 2.62 mg/dL (0.70-1.30) H 01/14/19 08:01 Est GFR ( Amer) 28 (> 60) L 01/14/19 08:01 Est GFR (Non-Af Amer) 23 (> 60) L 01/14/19 08:01 Glucose 122 mg/dL (70-105) H 01/14/19 08:01 Iron 40 mcg/dL (65-175) L 01/12/19 04:17 % Saturation 8 % (20-55) L 01/12/19 04:17 Ferritin 11 ng/mL (20-250) L 01/12/19 04:17 Troponin I 0.12 ng/mL (< 0.04) H* 01/12/19 14:43 B-Natriuretic Peptide 1475 pg/mL (Less than 100) H 01/12/19 04:17 Vitamin B12 73 pg/mL (250-1100) L 01/12/19 04:17 Folate 16.1 ng/mL (3.0-16.0) H 01/12/19 04:17 General appearance: Present: no acute distress - Respiratory Respiratory exam: Present: decreased breath sounds, CTAB - Cardiovascular Cardiovascular exam: Present: irregular rhythm, tachycardia - GI/Abdominal GI/Abdominal exam: Present: normal bowel sounds, soft - Extremities Exam Extremities exam: Present: normal capillary refill, normal inspection - Neurological Exam Neurological exam: Present: alert, strengths equal and symetr throughout Additional comments: Oriented to name and place - Skin Skin exam: Present: dry, pallor, warm Palliative Quality Palliative Quality: Screen for Code Status: Yes, Screen for Goals of Care: Yes, Screen for Pain: Yes, If Pain Regimen Started, Initiate Bowel Regimen: NA, Screen for Nausea/Vomitting: Yes Code Status: 01/12/19 02:16 Resuscitation Status: Active [RES] Routine Comment: Resuscitation Status: [id number] - Labs CBC & Chem 7: 01/12/19 04:17 01/14/19 08:01 Labs: Laboratory Results - last 24 hr 01/14/19 08:01 Sodium 138 Potassium 3.8 Chloride 103 Carbon Dioxide 26 BUN 38 H Creatinine 2.62 H Est GFR ( Amer) 28 L Est GFR (Non-Af Amer) 23 L BUN/Creatinine Ratio 15 Glucose 122 H Calculated Osmolality 296 Calcium 8.7 Magnesium 2.1 - ABG Interpretation ABG results: PT/INR, D-dimer PT 33.1 Seconds (9.4-12.1) H 01/12/19 04:17 Palliative Scale - Palliative Performance Scale How ambulatory is this patient?: Mainly sit / lie What is patient's level of activity and evidence of disease?: Unable normal job/work, Significant disease How much self-care assistance does patient require?: Considerable assistance required How much oral intake does the patient have?: Normal or reduced What is this patient's level of consciousness?: Full or confusion Palliative Performance Score: 60 % Consult Discharge Plan - Plan Referrals: NONE,PCP [Primary Care Provider] -
--- NOTE | 2019-01-14 16:46 | Event Note ---
Date of Encounter: 01/14/19 Time of Encounter: 16:38 Met with patient's NORMA Hancock, daughter in law, , and grand daughter to discuss GOC. Health decline over last 48hrs with unstable cardiac rhythm and progressing renal failure. Family has a good understanding of the severity of patient's illness and agree that the palliative/hospice route is likely in patient's best interest. However, they have family coming in from [place] of [place] and request to hold off on disabling ICD until tomorrow afternoon. Request that we continue supportive measures until that time. Can d/c telemetry and continuous oxygen sat and allow patient to have home narcotics for back pain. Will transfer to non-tele unit. Thank you palliative care and cardiology with help with this case.
[2019-01-14 17:03] LABS: INR 2.2; Prothrombin Time 24.5 Seconds (9.4-12.1)
[2019-01-14] MEDS ORDERED: *HR* Warfarin 1 MG TABLET PO ONE (18:00)
[2019-01-14] MEDS ORDERED: Warfarin perPT PO PRN (18:00)
[2019-01-14] MEDS: risperiDONE 0.25 MG TABLET PO SCH (20:07)
[2019-01-15 02:37] LABS: INR 2.2; Prothrombin Time 24.6 Seconds (9.4-12.1)
[2019-01-15 02:49] LABS: Calcium 8.3 mg/dL (8.6-10.3); Magnesium 2.1 mg/dL (1.6-2.6); Potassium 3.5 mEq/L (3.5-5.1)
--- NOTE | 2019-01-15 08:12 | Event Note ---
Date of Encounter: 01/15/19 Time of Encounter: 08:00 - Cardiology Event Note Notified by palliative care that patient going to hospice and would like tachy- therpy turned off later today. Elsie device biological science technician fish notified.
[2019-01-15] MEDS: *HR* Amiodarone 200 MG TABLET PO SCH (08:37)
[2019-01-15] MEDS: Nicotine 21 MG PATCH.TD24 TD SCH (08:37)
[2019-01-15] MEDS: Famotidine 20 MG TABLET PO SCH (08:38)
[2019-01-15] MEDS: *HR* HYDROcodone/Acet 5/325 mg TABLET PO SCH (08:38)
[2019-01-15] MEDS: Loratadine 10 MG TABLET PO SCH (08:38)
[2019-01-15] MEDS: Metoprolol XL (24 HR) Succ 50 MG TAB.ER.24H PO SCH (08:41)
--- NOTE | 2019-01-15 09:32 | Palliative Progress Note ---
Date of Encounter: 01/15/19 Time of Encounter: 09:30 - Assessment and plan (1) Dyspnea Current Visit: No Status: Acute Assessment and plan: Oxycodoe SL 5mg q2hrs prn for dyspnea and severe pain. Qualifiers: Dyspnea type: unspecified Qualified Code(s): R06.00 - Dyspnea, unspecified (2) Chronic low back pain Current Visit: No Status: Acute Assessment and plan: Patient on [place] TID scheduled, now added Oxycodone SL for dyspnea and severe pain. Qualifiers: Back pain laterality: unspecified Sciatica presence: without sciatica Qualified Code(s): M54.5 - Low back pain; G89.29 - Other chronic pain (3) Advanced care planning/counseling discussion Current Visit: Yes Status: Acute Assessment and plan: Family confirmed decision to transition to comfort care only. Plan is: - deactivate defibrillator -to return to [place] where patient lives with his , with hospice -Referral was placed to [facility]. (4) Ischemic cardiomyopathy Current Visit: No Status: Chronic Assessment and plan: Patient's AICD continues to discharge. Now p decided for deactivation of device and comfort measures only. (5) AICD discharge Current Visit: Yes Status: Acute (6) Palliative care encounter Current Visit: No Status: Acute - Time Spent With Patient Total time spent is greater than 50% in coordination of care (as documented) at patient's floor/unit and/or counseling patient: Greater than 35 minutes - Subjective Interval history: Patient aicd shocked him again this morning, and at this point patient and f amily want to avoid any further shocks. Magnet placed on device. Cardiology was contacted and will turn AICD off today. Patient feeling well, but worried about further shocks, was reassured. Daughter Karissa at the bedside. - Constitutional Vitals: Abnormal lab results RBC 3.36 M/mcL (4.19-5.50) L 01/12/19 04:17 Hgb 9.5 g/dL (12.9-16.9) L 01/12/19 04:17 Hct 30.6 % (37.5-50.1) L 01/12/19 04:17 MCHC 31.0 g/dL (31.6-35.5) L 01/12/19 04:17 RDW 15.4 % (11.5-14.5) H 01/12/19 04:17 Retic Hgb Equivalent 28.2 pg (28.61-36.33) L 01/12/19 04:17 PT 24.6 Seconds (9.4-12.1) H 01/15/19 02:06 BUN 47 mg/dL (8-23) H 01/15/19 02:06 Creatinine 3.78 mg/dL (0.70-1.30) H 01/15/19 02:06 Est GFR ( Amer) 19 (> 60) L 01/15/19 02:06 Est GFR (Non-Af Amer) 15 (> 60) L 01/15/19 02:06 Glucose 148 mg/dL (70-105) H 01/15/19 02:06 Calcium 8.3 mg/dL (8.6-10.3) L 01/15/19 02:06 Iron 40 mcg/dL (65-175) L 01/12/19 04:17 % Saturation 8 % (20-55) L 01/12/19 04:17 Ferritin 11 ng/mL (20-250) L 01/12/19 04:17 Troponin I 0.12 ng/mL (< 0.04) H* 01/12/19 14:43 B-Natriuretic Peptide 1475 pg/mL (Less than 100) H 01/12/19 04:17 Vitamin B12 73 pg/mL (250-1100) L 01/12/19 04:17 Folate 16.1 ng/mL (3.0-16.0) H 01/12/19 04:17 Exam: Vitals reviewed General appearance: appears comfortable and weak Chest: bilateral: normal breath sounds, normal effort Cardiovascular: irregular rate and rhythm, no murmur, rub, gallop Gastrointestinal: soft, non-tender, non-distended Integumentary: normal, intact Musculoskeletal: no deformities Neurologic: AAOx2, non-focal exam Psych: mood appropriate, affect normal Palliative Quality Palliative Quality: Screen for Code Status: Yes, Screen for Goals of Care: Yes, Screen for Pain: Yes, If Pain Regimen Started, Initiate Bowel Regimen: NA, Screen for Nausea/Vomitting: Yes Code Status: 01/12/19 02:16 Resuscitation Status: Active [RES] Routine Comment: Resuscitation Status: [id number] - Labs CBC & Chem 7: 01/12/19 04:17 01/15/19 02:06 Labs: Laboratory Results - last 24 hr 01/14/19 01/15/19 01/15/19 16:38 02:06 02:06 PT 24.5 H 24.6 H INR 2.2 2.2 Sodium 136 Potassium 3.5 Chloride 104 Carbon Dioxide 25 BUN 47 H Creatinine 3.78 H Est GFR ( Amer) 19 L Est GFR (Non-Af Amer) 15 L BUN/Creatinine Ratio 12 Glucose 148 H Calculated Osmolality 297 Calcium 8.3 L Magnesium 2.1 - ABG Interpretation ABG results: PT/INR, D-dimer PT 24.6 Seconds (9.4-12.1) H 01/15/19 02:06 Palliative Scale - Palliative Performance Scale How ambulatory is this patient?: Mainly sit / lie What is patient's level of activity and evidence of disease?: Unable normal job/work, Significant disease How much self-care assistance does patient require?: Considerable assistance required How much oral intake does the patient have?: Normal or reduced What is this patient's level of consciousness?: Full or confusion Palliative Performance Score: 60 % Consult Discharge Plan - Plan Referrals: NONE,PCP [Primary Care Provider] -
[2019-01-15 11:31] VITALS: BP 93/49
[2019-01-15] MEDS ORDERED: Acetaminophen 325 MG TABLET PO PRN (11:46)
--- NOTE | 2019-01-15 12:10 | Discharge Summary ---
Date of Encounter: 01/15/19 Time of Encounter: 12:06 - Discharge Diagnosis (1) Atrial fibrillation with RVR Priority: Primary Status: Acute (2) AICD discharge Priority: Secondary Status: Acute (3) Acute exacerbation of CHF (congestive heart failure) Priority: Secondary Status: Acute Qualifiers: Heart failure type: unspecified Qualified Code(s): I50.9 - Heart failure, unspecified (4) Advanced care planning/counseling discussion Priority: Secondary Status: Acute (5) Ventricular tachycardia Priority: Secondary Status: Acute (6) Acute and chronic respiratory failure with hypoxia Priority: Secondary Status: Acute (7) Heart failure with reduced ejection fraction Priority: Secondary Status: Chronic Qualifiers: Heart failure chronicity: acute on chronic Qualified Code(s): I50.23 - Acute on chronic systolic (congestive) heart failure (8) Acute renal failure superimposed on stage 4 chronic kidney disease Priority: Secondary Status: Acute Qualifiers: Acute renal failure type: with acute renal cortical necrosis Qualified Code(s): N17.1 - Acute kidney failure with acute cortical necrosis; N18.4 - Chronic kidney disease, stage 4 (severe) Hospital course: Mr. Vizcarra is a 83 year old male with history of dementia, HFrEF EF of 25-30%, CKD Stage III, and ICD with previous runs of vtach presented with repeat discharges from ICD and found to have multiple runs of ventricular tachycardia. Unfortunately, patient's arrhythmia could not be controlled with medical therapy and patient not a candidate for more advanced therapies given dementia, severe systolic heart failure, and advanced CKD. Given repeat shocks without a market research specialist option for control of arrhythmia, patient and family decided to pursue hospice and turn defibrillator off. Will be discharged on hospice back to care facility. Discharge discussed with: patient - Time Spent with Patient Total time spent providing and/or coordinating discharge services: - Discharge Medications Prescriptions: New Nicotine Patch [Nicoderm] 21 mg TD DAILY patch.td24 LORazepam Oral Conc [Ativan Oral Conc] 1 mg PO Q6HR 4 Days #4 mls OxyCODONE Oral CONC [Oxycodone Oral Conc] 10 mg PO Q4H PRN 7 Days #35 oral.syg PRN Reason: Pain Continued Albuterol Sulfate [Ventolin Hfa] 1 - 2 puff IH Q4HR PRN PRN Reason: WHEEZING/DYSPNEA Pantoprazole Sodium [Protonix] 20 mg PO 0800,1700 Sertraline [Zoloft] 25 mg PO 0800 Chlorpheniramine/Dextromethorp [Coricidin Hbp Cough-Cold Tab] 2 tab PO Q4H PRN MDD 4 TABS/24HR PRN Reason: Cold Symptoms Magnesium Hydroxide [Milk of Magnesia] 2,400 mg PO DAILY PRN PRN Reason: Constipation risperiDONE [RisperDAL] 0.25 mg PO 2000 Furosemide [Lasix] 20 mg PO Q48H #30 Ondansetron HCl [Zofran] 4 mg PO Q8HR PRN PRN Reason: nausea Quetiapine Fumarate [Seroquel] 25 mg PO 0800,1999 Loperamide HCl [Imodium A-D] 4 mg PO DAILY PRN MDD 16MG PRN Reason: Loose Stool Discontinued Atorvastatin Calcium [Lipitor] 20 mg PO 2000 Clopidogrel [Plavix] 75 mg PO 0800 Cetirizine HCl 5 mg PO 0800 Donepezil [Aricept] 10 mg PO 0800 Sennosides [Senna] 8.6 mg PO 0800,1700 Ranitidine HCl [Heartburn Relief] 75 mg PO BID Ipratropium/Albuterol Sulfate [Iprat-Albut 0.5-3(2.5) mg/3 ml] 3 ml IH Q4H PRN PRN Reason: COUGH/CONGESTION Polyethylene Glycol 3350 [MiraLax bowel prep] 17 gm PO 0800 Acetaminophen [Tylenol] 650 mg PO Q4HR PRN PRN Reason: Pain Oxybutynin Chloride [Ditropan XL] 5 mg PO 0800 HYDROcodone/Acet 5/325 mg [[place] 5-325 mg] 1 tab PO TID 1 Days #3 tablet Amiodarone HCl 200 mg PO DAILY #0 Warfarin Sodium 1 mg PO DAILY Lisinopril [Zestril] 5 mg PO 0800 Metoprolol Succinate 50 mg PO 0800 Home Medications: Albuterol Sulfate [Ventolin Hfa] 1 - 2 puff IH Q4HR PRN 05/19/18 [History] Pantoprazole Sodium [Protonix] 20 mg PO 0800,1700 05/19/18 [History] Sertraline [Zoloft] 25 mg PO 0800 10/13/18 [History] Chlorpheniramine/Dextromethorp [Coricidin Hbp Cough-Cold Tab] 2 tab PO Q4H PRN MDD 4 TABS/24HR 10/14/18 [History] Magnesium Hydroxide [Milk of Magnesia] 2,400 mg PO DAILY PRN 10/14/18 [History] risperiDONE [RisperDAL] 0.25 mg PO 199911/19/18 [History] Furosemide [Lasix] 20 mg PO Q48H #30 11/26/18 [Rx] Loperamide HCl [Imodium A-D] 4 mg PO DAILY PRN MDD 16MG 01/11/19 [History] Ondansetron HCl [Zofran] 4 mg PO Q8HR PRN 01/11/19 [History] Quetiapine Fumarate [Seroquel] 25 mg PO 799,199901/11/19 [History] LORazepam Oral Conc [Ativan Oral Conc] 1 mg PO Q6HR 4 Days #4 mls 01/15/19 [Rx] Nicotine Patch [Nicoderm] 21 mg TD DAILY patch.td24 01/15/19 [Rx] OxyCODONE Oral CONC [Oxycodone Oral Conc] 10 mg PO Q4H PRN 7 Days #35 oral.syg 01/15/19 [Rx] Allergies/Adverse Reactions: Allergy/AdvReac Type Severity Reaction Status Date / Time No Known Allergies Allergy Verified 01/12/19 22:50 Date of admission: 01/12/19 02:16 Primary care physician: PCP NONE Consults: 01/12/19 02:17 Consult to Cardiac Rehabilitation-Phase1 [CONS] Routine Comment: Reason for Consult: heart failure Call Completed: Yes Consult to Nurse Navigator [CONS] Routine Comment: 01/12/19 02:22 Consult to Nutrition [CONS] Routine Comment: Consulting Provider: NUTRITION Reason for Dietary Consult: Other Other:: Severe malnutrition. Consult to Physical Therapy [CONS] Routine Comment: Evaluate, develop and implement POC Reason for Consult: Evaluation and treatment. Does patient have active BEDREST order?: No Is patient medically & hemodynamically stable?: Yes Patient assessed for mobility or mobilized this visit?: No 01/12/19 06:00 Consult to Cardiology [CONS] Routine Comment: Consulting Provider: Cardiology Sunni Reason for Consult: Sustained monomorphic ventricullar tachycardia- hx of HFrEF ICD NY3 EF 30% Call Completed: No Consult to Palliative Care [CONS] Routine Comment: Consulting Provider: Palliative Care Sunni Reason for Consult: would benefit from palliative care. Close to end stage HF. Call Completed: No - Constitutional Vitals: Temp Pulse Resp BP Pulse Ox 96.5 F L 65 19 93/49 99 01/15/19 11:24 01/15/19 11:24 01/15/19 11:24 01/15/19 11:24 01/15/19 11:24 Exam: General: Ill-appearing and in no acute distress HEENT: No erythema of posterior pharynx. No exudates. Lymphatics: No mandibular or cervical lymphadenopathy Cardiovascular: Tachycardic and irregular. No murmurs. No chest wall tenderness. Lungs: Clear to auscelltation bilaterally. Regular chest rise. Abdomen: Non-tender. No rebound or gaurding. Nl bowel sounds. Extremities: No edema. 2+ pulses radial and pedal pulses Skin: No rahses, abrasions, or contusions. Nl cap refill. Psych: Nl attention. A&Ox3 Neuro: auricular acupuncturist II-XII intact. 5/5 strength. Sensation to light touch and pinprick intact. - Patient Status Disposition: Hospice - Medical Facility Functional capacity at discharge: uses cane/walker Overall status at discharge: patient is not back to baseline - Discharge Instructions Follow Up With: NONE,PCP [Primary Care Provider] - - Diet and Activity Activity: resume usual activities as tolerated Diet: advance to your usual diet - VTE Reasons for not Prescribing Prophylaxis: Not indicated-Anticoagulated or INR therapeutic
--- NOTE | 2019-01-15 13:39 | Physician Discharge Referral ---
Home Health/Hosp Referral Info Transfer to: Home Health, Hospice Attending Provider: Paco Oseguera MD Provider in Charge Post Discharge: [employer] - Diagnosis (1) Atrial fibrillation with RVR Priority: Primary Status: Acute (2) AICD discharge Priority: Secondary Status: Acute (3) Acute exacerbation of CHF (congestive heart failure) Priority: Secondary Status: Acute (4) Advanced care planning/counseling discussion Priority: Secondary Status: Acute (5) Ventricular tachycardia Priority: Secondary Status: Acute (6) Acute and chronic respiratory failure with hypoxia Priority: Secondary Status: Acute (7) Heart failure with reduced ejection fraction Priority: Secondary Status: Chronic (8) Acute renal failure superimposed on stage 4 chronic kidney disease Priority: Secondary Status: Acute - Respiratory Orders Smoking Cessation: Smoking cessation has been advised. For more information, call the [employer] Tobacco Quit Line at 1-434-ZWCE-NOW. - Diet/Nutrition Diet/Nutrition Orders: Regular - Activity Activity Orders: Up ad miriam Other Treatments: Hospice nurse - Transfer Medications Prescriptions: LORazepam Oral Conc [Ativan Oral Conc] 1 mg PO Q6HR 4 Days #4 mls Prescription Printed OxyCODONE Oral CONC [Oxycodone Oral Conc] 10 mg PO Q4H PRN 7 Days #35 oral.syg PRN Reason: Pain Prescription Printed Home Medications: Albuterol Sulfate [Ventolin Hfa] 1 - 2 puff IH Q4HR PRN 05/19/18 [History] Pantoprazole Sodium [Protonix] 20 mg PO 0800,1700 05/19/18 [History] Sertraline [Zoloft] 25 mg PO 0800 10/13/18 [History] Chlorpheniramine/Dextromethorp [Coricidin Hbp Cough-Cold Tab] 2 tab PO Q4H PRN MDD 4 TABS/24HR 10/14/18 [History] Magnesium Hydroxide [Milk of Magnesia] 2,400 mg PO DAILY PRN 10/14/18 [History] risperiDONE [RisperDAL] 0.25 mg PO 199911/19/18 [History] Furosemide [Lasix] 20 mg PO Q48H #30 11/26/18 [Rx] Loperamide HCl [Imodium A-D] 4 mg PO DAILY PRN MDD 16MG 01/11/19 [History] Ondansetron HCl [Zofran] 4 mg PO Q8HR PRN 01/11/19 [History] Quetiapine Fumarate [Seroquel] 25 mg PO 799,199901/11/19 [History] LORazepam Oral Conc [Ativan Oral Conc] 1 mg PO Q6HR 4 Days #4 mls 01/15/19 [Rx] Nicotine Patch [Nicoderm] 21 mg TD DAILY patch.td24 01/15/19 [Rx] OxyCODONE Oral CONC [Oxycodone Oral Conc] 10 mg PO Q4H PRN 7 Days #35 oral.syg 01/15/19 [Rx] Allergies/Adverse Reactions: Allergy/AdvReac Type Severity Reaction Status Date / Time No Known Allergies Allergy Verified 01/12/19 22:50 Certification: Further, I certify that my clinical findings support that this patient is homebound (i.e. absences from home require considerable and taxing effort and are for medical reasons or alevism services or infrequently or short duration when for other reasons) because: Hospice status Homebound Reason: Patient requires assistance of a person or device to safely leave home Attestation: My signature below is to certify that this patient is under my care and that I, or nurse practitioner, or a physician's assistant auditor working with me, has a [id number] encounter with this patient. Tremayne Oseguera MD
[2019-01-15] MEDS ORDERED: *HR* HYDROcodone/Acet 5/325 mg TABLET PO PRN (14:00)
[2019-01-15] MEDS ORDERED: *HR* Warfarin 1 MG TABLET PO ONE (18:00)
== END 2019-01-15 14:15 | disposition hospice, inpatient (51) | DRG 314 ==
LOC: EMEROOARM 20:29 → 2NENU 20:29 → 2NNU 01-13 18:24 → 2ANU 01-14 20:42
PROVIDERS: ADMIT Internal Medicine; ATTEND Internal Medicine